=== PATIENT | male | born 1950 | race Caucasian/White ===

== ENCOUNTER 2023-11-21 00:20 | Emergency (ER) | payer MEDICARE, SELFPAY ==
[2023-11-21 00:38] VITALS: BP 160/81
== END 2023-11-21 02:16 | disposition left against medical advice (07) ==
LOC: EMR 00:20
DX: S79.911A Unspecified injury of right hip, initial encounter (principal); W19.XXXA Unspecified fall, initial encounter
CPT/HCPCS: 73502

== ENCOUNTER 2023-11-23 14:35 | Emergency (ER) | payer MEDICARE, SELFPAY ==
[2023-11-23 14:36] VITALS: BP 147/65
--- NOTE | 2023-11-23 15:24 | ED.GENMED ---
History of Present Illness
General
Chief Complaint: Alcohol Problem
Time Seen by Provider: 11/23/23 14:55
Travel History
Have you had any contact with someone who has COVID-19?: No
Do you have any symptoms of coronavirus? Fever > 100 degrees, chills, cough, shortness of breath, sore throat, loss of taste or smell, muscle aches, or headache?: No
History of Present Illness
History of Present Illness:
73 yo male presents to the Emergency Department via EMS for evaluation after being found asleep outside of grocery store. He admits to drinking '3 drinks' today due to chronic knee pain. Also admits to homelessness. Denies any medical complaints.
Past History
Past History
ED Past Medical History: [place], Psychiatric (Depression, Schizophrenia) and Other (Back injury)
ED Past Surgical History: None
Social History
Tobacco: Smoker
Alcohol: None
Personal:
Living: homeless
Phy Exam
Physical Exam
Physical Exam:
GEN: Well appearing, NAD, WDWN
HEENT: Oral mucosa moist, no scleral icterus
Cardiac: Regular rate
Lung: No respiratory distress, no tachypnea
MSK: No gross deformity or injuries
Skin: Good color, no pallor or jaundice, no rashes
Neuro: Somnolent, arouses to voice, easily agitated
Psych: Calm, cooperative
Scores
Withdrawal Assessment of Alcohol
Withdrawal Assessment Completed?: Not applicable
Course
Orders/Labs/Results
Orders:
Orders
11/23/23 15:09
Case Management Consult ONCE
Case Management Consult: Other
Comment: homeless
Vital Signs
Initial and Last Documented VS:
Initial Vital Signs
Temp Pulse Resp BP Pulse Ox
97.9 F 73 16 147/65 97
11/23/23 14:36 11/23/23 14:36 11/23/23 14:36 11/23/23 14:36 11/23/23 14:36
Last Documented Vital Signs
Temp Pulse Resp BP Pulse Ox
97.9 F 61 20 123/57 97
11/23/23 14:36 11/23/23 19:00 11/23/23 19:00 11/23/23 19:00 11/23/23 14:36
MDM/Problems Addressed
MDM/Problems Addressed:
Changed patient was observed in the emergency department until clinical sobriety. He complains of chronic knee pain however this is an ongoing problem for him for many years. He is discharged in stable condition. Case management did attempt to
see the patient however he was too somnolent to cooperate
*Critical Care Note
Total Time (30-74mins, 75-104mins- exclusive of procedures): Not Applicable
ED Attending Note
-
Portions of this chart may have been created with voice recognition software.� Occasional wrong word or��sound alike� substitutions may have occurred due to the inherent limitations of voice recognition software.
Discharge Plan
Departure
Patient Disposition: Home (Routine Discharge)
Date of Disposition: 11/23/23
Time of Disposition: 19:16
Patient with high blood pressure during this ER visit?: No
Discharge Problem:
Homelessness, Alcohol intoxication
Prescriptions:
No Action
No Current Medications
0
Referrals:
UNKNOWN - PT NOT,INTERVIEWE [Family Provider] -
Interventions
Interventions:
*Risk Screen - Suicide Last Done: 11/23/23 14:40
*General Assessment Last Done: 11/23/23 14:39
*Neglect/Abuse Screening Last Done: 11/23/23 14:40
*ED COVID-19 Vaccine History Last Done: 11/23/23 14:39
*Nursing Disposition Last Done: 11/23/23 19:24
ED- Neurological Assessment Last Done: 11/23/23 14:41
ED-Psychological Assessment Last Done: 11/23/23 14:41
Discharge Date and Time
Discharge Date/Time: 11/23/23 19:24
Print Language: ANGUILLAN
[2023-11-23 16:06] VITALS: BP 129/72
--- NOTE | 2023-11-23 16:19 | CM ---
CM consult received for homelessness. Reviewed the chart notes and attempted to speak with the patient, patient lethargic. Patient sleeping soundly and snoring. RN and attending updated. All patient was able to communicate was 'living on
street'. No meaning conversation was able to be ascertained between patient and CM. CM continues to be available to patient/family and is monitoring medical plan for needs at discharge.
Plan: Patient to sleep off his inebriation and be discharged to the street.
[2023-11-23 17:00] VITALS: BP 108/54
[2023-11-23 18:00] VITALS: BP 122/58
[2023-11-23 19:00] VITALS: BP 123/57
== END 2023-11-23 19:24 | disposition home or self-care (01) ==
LOC: EMR 14:35
PROVIDERS: EMERGENCY PHYSICIAN Emergency Medicine
DX: F10.129 Alcohol abuse with intoxication, unspecified (principal); Z59.00 Homelessness unspecified; F20.9 Schizophrenia, unspecified; F17.200 Nicotine dependence, unspecified, uncomplicated; I25.2 Old myocardial infarction
CPT/HCPCS: 99282

== ENCOUNTER 2024-06-30 22:19 | Emergency (ER) | payer MEDICARE, SELFPAY ==
[2024-06-30 22:27] VITALS: BP 127/66
[2024-07-01 01:25] VITALS: BP 148/88
[2024-07-01 02:38] VITALS: BP 162/86
--- NOTE | 2024-07-01 02:50 | ED.GENMED ---
History of Present Illness
General
Chief Complaint: Cough
Source: patient
Time Seen by Provider: 07/01/24 02:42
History of Present Illness
History of Present Illness:
74-year-old male who is currently homeless who states that he has been coughing for the last 2 months and he has been short of breath. He was dropped off at while out by police and they called medics as result of his complaint. Patient is a
smoker. He denies chest pain or pressure, fever, chills, abdominal pain, back pain, neck pain, headache, dizziness, or other complaints.
Past History
Past History
ED Past Medical History: [place], Psychiatric (Depression, Schizophrenia) and Other (Back injury)
ED Past Surgical History: None
Social History
Tobacco: Smoker
Alcohol: None
Drug: None
Personal:
Living: homeless
Phy Exam
Physical Exam
Physical Exam:
GENERAL: Alert , in no apparent distress
EYE: pupils equal and reactive
NECK: Supple, no significant adenopathy.
ENT: o/p clr, mmm.
CARDIAC: Regular rate and rhythm .
LUNGS: Equal breath sounds bilaterally, no acute respiratory distress, speaks in full sentences easily, diffuse wheezing with scattered rhonchi noted
ABDOMEN: Soft, without focal tenderness, no r/g, no cvat
NEUROLOGICAL: Alert and oriented, no focal neuro deficits
SKIN: Warm and dry, skin intact.
MUSCULOSKELETAL: No edema, well perfused.
PSYCH: Normal and appropriate interaction.
Course
Orders/Labs/Results
Orders:
Orders
07/01/24 02:37
CR Chest - 2 Views Urgent
Comment:
Reason For Exam: cough
07/01/24 02:49
Electrocardiogram (*1) Stat
Reason for Study: Other
Other Reason for Exam: pneumonia
07/01/24 02:55
Complete Blood Count/No Diff Urgent
Comprehensive Metabolic Panel Urgent
Troponin I Urgent
Abnormal Lab Results
07/01/24
02:55
RBC 4.37 L 10^6/uL
(4.70-6.10)
MCV 97.0 H fL
(80.0-94.0)
MCH 33.2 H pg
(27.0-31.0)
MPV 10.8 H fL
(7.4-10.4)
Glucose 116 H mg/dl
(70-99)
Total Protein 6.2 L g/dl
(6.3-8.2)
07/01/24 02:55
07/01/24 02:55
Vital Signs
Initial and Last Documented VS:
Initial Vital Signs
Temp Pulse Resp BP Pulse Ox
98.1 F 73 18 127/66 95
06/30/24 22:27 06/30/24 22:27 06/30/24 22:27 06/30/24 22:27 06/30/24 22:27
Last Documented Vital Signs
Temp Pulse Resp BP Pulse Ox
98.1 F 82 14 147/76 95
06/30/24 22:27 07/01/24 01:25 07/01/24 01:25 07/01/24 03:00 07/01/24 02:58
*Critical Care Note
Total Time (30-74mins, 75-104mins- exclusive of procedures): Not Applicable
Update Note
Update Note:
Patient presents to the Emergency Department with cough and shortness of breath
Number and Complexity of Problems Addressed at the Encounter
� Chronic conditions affecting care:
� Acute Exacerbation and/or Progression of Chronic Illness:
� Differential Diagnosis includes: But not limited to bronchitis, pneumonia, COVID, smoker related cough, COPD, etc. etc.
Amount and/or Complexity of Data to be Reviewed and Analyzed
� I performed an independent evaluation of and my interpretation is:
EKG: Read by me normal sinus rhythm no acute ischemia
CT:
Xrays: Read by me no specific infiltrate noted
Laboratory Studies: Generally unremarkable
Other:
� Review of other/old records reveals:
� Clinical information was obtained by an independent historian:
� Prescriptions/Medications Considered but not given:
� Further testing considered but not performed:
Risk of Complications and/or Morbidity or Mortality of Patient Management
� Social determinants of health affecting care:
� Discussion with other providers (PCP, Hospitalists, Consultants, etc):
� Escalation of care including admission/observation vs risk of discharge considered: 3:53 AM patient is a been observed here for some time, no obvious cough, has been sleeping. Is resistant to having swabs performed and is also
resistant to further testing. Recommendation is for treatment for presumed COPD given his smoking history, cough, etc. with steroids, inhaler, and consideration for antibiotic for likely bronchitis. I will write these prescriptions, patient stable
for discharge.
ED Attending Note
-
Portions of this chart may have been created with voice recognition software.� Occasional wrong word or��sound alike� substitutions may have occurred due to the inherent limitations of voice recognition software.
Discharge Plan
Departure
Patient Disposition: Home (Routine Discharge)
Date of Disposition: 07/01/24
Time of Disposition: 03:54
Patient with high blood pressure during this ER visit?: Yes
Condition: Good
Discharge Problem:
Cough
Instructions: Cough, Adult (DC), BLOOD PRESSURE
Prescriptions:
New
albuterol sulfate 90 mcg/actuation aerosol powdr breath activated
2 inh inhalation Q6H PRN (Reason: shortness of breath or wheezing) Qty: 1 0RF
doxycycline hyclate 100 mg capsule
100 mg PO BID Qty: 14 0RF
prednisone 50 mg tablet
50 mg PO DAILY Qty: 5 0RF
Activity Restrictions/Additional Instructions:
IF YOU DEVELOP FEVER, CHEST PAIN, VOMITING, SHORTNESS OF BREATH, GET WORSE, DO NOT GET BETTER, OR OTHER WORRISOME SIGNS, PLEASE RETURN TO THE ER IMMEDIATELY
Interventions
Interventions:
*Risk Screen - Suicide Last Done: 07/01/24 03:00
*General Assessment Last Done: 07/01/24 03:00
*Neglect/Abuse Screening Last Done: 07/01/24 03:00
ED- Fall Risk Assessment Last Done: 07/01/24 02:58
*ED COVID-19 Vaccine History Last Done: 07/01/24 02:58
*Nursing Disposition Last Done: 07/01/24 04:15
ED- Pulmonary Assessment Last Done: 07/01/24 02:58
Discharge Date and Time
Discharge Date/Time: 07/01/24 04:16
Print Language: AMHARIC
[2024-07-01 02:58] VITALS: BMI 29.3
[2024-07-01 03:00] VITALS: BP 147/76
[2024-07-01 03:06] LABS: Hematocrit 42.4 % (39.0-52.0); Hemoglobin 14.5 g/dL (13.0-18.0); Mean Corp Hgb Conc. 34.2 g/dL (33.0-37.0); Mean Corpuscular Hgb 33.2 pg (27.0-31.0); Mean Platelet Volume 10.8 fL (7.4-10.4); Platelet Count 172 10^3/uL (130-400); Red Blood Cell Count 4.37 10^6/uL (4.70-6.10); Red Cell Dist. Width 12.6 % (11.5-14.5); White Blood Cell Count 5.7 10^3/uL (4.8-10.8)
[2024-07-01 03:15] LABS: ALT (SGPT) 16 U/L (0-50); AST (SGOT) 23 U/L (17-59); Albumin 3.8 g/dl (3.5-5.0); Alkaline Phosphatase 54 U/L (38-126); Blood Urea Nitrogen 18 mg/dl (9-20); Calcium 8.9 mg/dl (8.4-10.2); Carbon Dioxide 24 mmol/L (22-30); Chloride 107 mmol/L (98-107); Estimated Creatinine Clearance 92 ml/min; Glucose 116 mg/dl (70-99); Potassium 4.5 mmol/L (3.5-5.1); Sodium 138 mmol/L (135-145); Total Bilirubin 0.3 mg/dl (0.2-1.3); Total Protein 6.2 g/dl (6.3-8.2); eGFR > 60.00
[2024-07-01 03:27] LABS: Troponin I < 0.012 ng/ml
== END 2024-07-01 04:16 | disposition home or self-care (01) ==
LOC: EMR 22:19
PROVIDERS: EMERGENCY PHYSICIAN Emergency Medicine
DX: R05.9 Cough, unspecified (principal); F17.200 Nicotine dependence, unspecified, uncomplicated; Z59.00 Homelessness unspecified; R03.0 Elevated blood-pressure reading, without diagnosis of hypertension
CPT/HCPCS: 99285; 71046; 80053; 84484; 85027; 93005

== ENCOUNTER 2024-08-06 23:26 | Emergency (ER) | payer MEDICARE, SELFPAY ==
[2024-08-06 23:36] VITALS: BP 164/95
--- NOTE | 2024-08-07 02:35 | EDRN ---
$854 counted by Jakub from security. Money locked up with security.
--- NOTE | 2024-08-07 05:09 | ED.GENMED ---
History of Present Illness
General
Chief Complaint: Psychiatric Problem
Source: patient
Exam Limitations: none
Time Seen by Provider: 08/07/24 04:27
Nursing documentation reviewed up to this point in time: agreed with
History of Present Illness
History of Present Illness:
This is a 74-year-old chronically homeless gentleman who has history of anxiety/depression and reported history of schizophrenia.
He called [phone] from a local convenience store that was closing soon. He states his nursing home was closing, there was no on the ground and called and he admits that he needed a place to sleep.
According to nursing staff patient arrived and seemed initially quite disorganized with rambling speech.
He denies suicidal thoughts or plan.
He denies any acute medical issues. Denies pain.
He requests a bed to sleep and and then plans to be discharged in the morning.
According to security staff, patient has over $700 in sharp on his possession.
Patient does admit that he is homeless but declines assistance with housing at this time.
Past History
Past History
ED Past Medical History: [place], Psychiatric (Depression, Schizophrenia) and Other (Back injury)
ED Past Surgical History: None
Social History
Tobacco: Smoker
Alcohol: None
Drug: None
Personal:
Living: homeless
Family History
Family History: Other (Noncontributory)
Phy Exam
Physical Exam
Physical Exam:
GENERAL: 74-year-old gentleman appears somewhat older than stated age. Sleeps when undisturbed, easily arousable and once awake he is bright and alert, easily conversant, appears in no acute distress.
ENT: oral mucosa is moist. No rhinorrhea.
CARDIAC: Regular rate and rhythm. no murmur.
LUNGS: No respiratory distress.
ABDOMEN: Nontender.
NEUROLOGICAL: Alert and oriented x3, no focal neuro deficits. Gait is beauchamp and steady.
SKIN: Warm and dry, normal color, skin intact. No rash.
MUSCULOSKELETAL: No C/C/E. peripheral pulses are full and equal b/l. No palpable tenderness.
PSYCH: Moderately disheveled and unkempt. Denies suicidal thoughts or plan. Denies homicidal thoughts. Denies hallucinations. Easily conversant. Normal speech pattern.
Course
Orders/Labs/Results
Orders:
Orders
08/07/24 04:26
Crisis Consult Urgent
Reason for Consult: HOMELESS, HX OF SCHIZOPHRENIA--AGITATED, DISORGANIZED
Vital Signs
Initial and Last Documented VS:
Initial Vital Signs
Temp Pulse Resp BP Pulse Ox
97.7 F 78 24 164/95 94
08/06/24 23:36 08/06/24 23:36 08/06/24 23:36 08/06/24 23:36 08/06/24 23:36
Last Documented Vital Signs
Temp Pulse Resp BP Pulse Ox
97.7 F 78 24 164/95 94
08/06/24 23:36 08/06/24 23:36 08/06/24 23:36 08/06/24 23:36 08/06/24 23:36
MDM/Problems Addressed
Differential Diagnosis Includes:
74-year-old gentleman with reported past psychiatric history presents requesting a place to sleep due to cold increment weather.
Apparently unable to enter a nursing home tonight.
Currently cooperative. Denies hallucinations, denies racing thoughts. Denies thoughts of suicide.
Will consult crisis to assess for potential psychiatric need, potential need for outpatient services.
Patient has been allowed to sleep in crisis bed 1.
He is somewhat disheveled but appears euvolemic.
Denies acute medical issues.
At this point no indication for laboratory studies nor imaging.
Chronic conditions affecting care: Psychiatric illness and Other (Chronic homelessness)
*Pulse Oximetry
Patient hypoxic: no
*Critical Care Note
Total Time (30-74mins, 75-104mins- exclusive of procedures): Not Applicable
Patient Management
Social determinants of health affecting care: Living situation and Poor outpatient follow-up
ED Attending Note
-
Portions of this chart may have been created with voice recognition software.� Occasional wrong word or��sound alike� substitutions may have occurred due to the inherent limitations of voice recognition software.
Discharge Plan
Departure
Patient Disposition: Home (Routine Discharge)
Date of Disposition: 08/07/24
Time of Disposition: 05:09
Patient with high blood pressure during this ER visit?: No
Condition: Good
Discharge Problem:
Homelessness
Prescriptions:
No Action
albuterol sulfate 90 mcg/actuation aerosol powdr breath activated
2 inh inhalation Q6H PRN (Reason: shortness of breath or wheezing) Qty: 1 0RF
doxycycline hyclate 100 mg capsule
100 mg PO BID Qty: 14 0RF
prednisone 50 mg tablet
50 mg PO DAILY Qty: 5 0RF
Referrals:
UNKNOWN - PT NOT,INTERVIEWE [Family Provider] -
Interventions
Interventions:
*Risk Screen - Suicide Last Done: 08/07/24 00:12
*General Assessment Last Done: 08/07/24 00:12
*Neglect/Abuse Screening Last Done: 08/07/24 00:12
ED- Fall Risk Assessment Last Done: 08/07/24 05:22
*ED COVID-19 Vaccine History Last Done: 08/07/24 00:12
*Nursing Disposition Last Done: 08/07/24 05:23
ED-Psychological Assessment Last Done: 08/07/24 00:12
Discharge Date and Time
Discharge Date/Time: 08/07/24 05:25
Print Language: NICARAGUAN
== END 2024-08-07 05:25 | disposition home or self-care (01) ==
LOC: EMR 23:26
PROVIDERS: EMERGENCY PHYSICIAN Emergency Medicine
DX: F20.9 Schizophrenia, unspecified (principal); Z59.00 Homelessness unspecified; I25.2 Old myocardial infarction; F17.200 Nicotine dependence, unspecified, uncomplicated
CPT/HCPCS: 99283

== ENCOUNTER 2024-08-10 15:17 | Inpatient (IN) | payer MEDICARE, SELFPAY ==
[2024-08-10 12:08] VITALS: BMI 25.0
[2024-08-10 12:09] VITALS: BP 190/85
--- NOTE | 2024-08-10 12:19 | ED.GENMED ---
History of Present Illness
<Delmis Riley PA-C - Last Filed: 08/10/24 17:05>
General
Chief Complaint: Cough
Source: patient and ambulance crew
Exam Limitations: none
Time Seen by Provider: 08/10/24 12:14
History of Present Illness
History of Present Illness:
74yoM with a history of tobacco use presenting via EMS for evaluation of a cough. Cough has been ongoing for a several months but has been worsening the past few weeks. Cough is mainly dry. He is homeless and was at the [facility] today. A passerby
told him that he may have COVID so he decided to come to the ED. He states he has fevers 'here and there.' He denies any chest pain or shortness of breath. Patient smokes 1/2 ppd.
Past History
<Delmis Riley PA-C - Last Filed: 08/10/24 17:05>
Past History
ED Past Medical History: [place], Psychiatric (Depression, Schizophrenia) and Other (Back injury)
ED Past Surgical History: None
Social History
Tobacco: Smoker
Alcohol: None
Drug: None
Personal:
Living: homeless
Family History
Family History: Other (Noncontributory)
Phy Exam
<Delmis Riley PA-C - Last Filed: 08/10/24 17:05>
General Physical Exam
General Presentation: well appearing and no apparent distress
General age: appears stated age
General Skin: warm and dry
General Habitus: elderly
General Mental: alert
ENT Exam
ENT Exam: normocephalic
Cardiovascular Exam
Cardiovascular Exam: regular rate/rhythm
Pulmonary Exam
Pulmonary Exam: no respiratory distress, no rales and other (Frequent dry cough noted. Rhonchi that clear with coughing.)
Neurological Exam
Neurological Exam: alert
Skin Exam
Skin Exam: normal color and warm/dry
Psychiatric Exam
Psychiatric Exam: normal mood/affect
Course
<Delmis Riley PA-C - Last Filed: 08/10/24 17:05>
Orders/Labs/Results
Orders:
Orders
08/10/24 Breakfast
Regular
At Your Request: Full Participation
08/10/24 12:16
Chest [CR Chest - 2 Views ] Urgent
Comment:
Reason For Exam: cough
08/10/24 12:17
COVID-19 Antigen Urgent
Source: Nasal Swab
INF RAPID [Influenza A+B Rapid Molecular] Urgent
GURWINDER Source: Nasal Swab
Specimen Description:
08/10/24 12:20
Case Management Consult ONCE
Case Management Consult: Discharge Planning
08/10/24 13:22
Complete Blood Count/With Diff Urgent
Comprehensive Metabolic Panel Urgent
08/10/24 14:13
Azithromycin [Zithromax] 500 mg PO NOW STA
CefTRIAXone [Rocephin] 2,000 mg IV NOW STA
08/10/24 14:21
Sterile Water [Sterile Water For Injection] 20 ml .ROUTE .STK-MED
08/10/24 14:33
Dexamethasone Sod Phosphate [Decadron] 10 mg IV NOW STA
Ipratropium/Albuterol Sulfate [Duoneb] 3 ml INH R NOW STA
08/10/24 15:05
Admit/Transfer Patient As Directed
Co-Sign Provider:
Level of Care: Inpatient admission
Assign to:: Medical/Surgical
Physician / Group: jaqueline
Diagnosis: pneumonia
Reason for Hospitalization: pneumonia
Expected length of stay greater than two midnights?: Yes
ELOS- Estimated Length of Stay in days: 3
I certify the patient meets the requirements for IP care: Yes
PRN Pain Medication Management As Directed
May give lesser potent ordered pain med per pt: Yes
preference::
Protocol:: Medication orders for pain may be administered in a
manner that supports deferring to patient preference
when the pt is:
- Requesting an ordered lesser potent pain medication.
Least to most potent pain medications are defined
as: acetaminophen < NSAID < tramadol < opioids
(morphine, oxycodone, hydromorphone).
- Requesting a lesser dose of the same medication IF
ORDERED.
- Requesting a less intrusive route of administration
if both routes are prescribed by the provider (PO <
IV).
08/10/24 15:06
Code Status As Directed
Resuscitation Status: Full Code
Abnormal Lab Results
08/10/24
13:22
RBC 4.39 L 10^6/uL
(4.70-6.10)
MCV 95.2 H fL
(80.0-94.0)
MCH 32.6 H pg
(27.0-31.0)
Absolute Lymphs (auto) 0.5 L 10^3/uL
(1.2-3.4)
Absolute Monos (auto) 0.8 H 10^3/uL
(0.1-0.6)
Neutrophils % 76.2 H %
(42.2-75.2)
Lymphocytes % 8.4 L %
(20.5-51.1)
Monocytes % 13.3 H %
(1.7-9.3)
Sodium 134 L mmol/L
(135-145)
BUN 22 H mg/dl
(9-20)
Creatinine 0.6 L mg/dL
(0.7-1.3)
Glucose 100 H mg/dl
(70-99)
08/10/24 13:22
08/10/24 13:22
Vital Signs
Initial and Last Documented VS:
Initial Vital Signs
Temp Pulse Resp BP Pulse Ox
99.3 F 80 25 190/85 95
08/10/24 12:09 08/10/24 12:09 08/10/24 12:09 08/10/24 12:09 08/10/24 12:09
Last Documented Vital Signs
Temp Pulse Resp BP Pulse Ox
99.3 F 80 22 157/76 94
08/10/24 12:09 08/10/24 15:46 08/10/24 15:46 08/10/24 15:46 08/10/24 15:46
<Clifton Jerome, DO - Last Filed: 08/10/24 14:45>
Orders/Labs/Results
Orders:
Orders
08/10/24 Breakfast
Regular
At Your Request: Full Participation
08/10/24 12:16
Chest [CR Chest - 2 Views ] Urgent
Comment:
Reason For Exam: cough
08/10/24 12:17
COVID-19 Antigen Urgent
Source: Nasal Swab
INF RAPID [Influenza A+B Rapid Molecular] Urgent
GURWINDER Source: Nasal Swab
Specimen Description:
08/10/24 12:20
Case Management Consult ONCE
Case Management Consult: Discharge Planning
08/10/24 13:22
Complete Blood Count/With Diff Urgent
Comprehensive Metabolic Panel Urgent
08/10/24 14:13
Azithromycin [Zithromax] 500 mg PO NOW STA
CefTRIAXone [Rocephin] 2,000 mg IV NOW STA
08/10/24 14:21
Sterile Water [Sterile Water For Injection] 20 ml .ROUTE .STK-MED
08/10/24 14:33
Dexamethasone Sod Phosphate [Decadron] 10 mg IV NOW STA
Ipratropium/Albuterol Sulfate [Duoneb] 3 ml INH R NOW STA
08/10/24 15:05
Admit/Transfer Patient As Directed
Co-Sign Provider:
Level of Care: Inpatient admission
Assign to:: Medical/Surgical
Physician / Group: jaqueline
Diagnosis: pneumonia
Reason for Hospitalization: pneumonia
Expected length of stay greater than two midnights?: Yes
ELOS- Estimated Length of Stay in days: 3
I certify the patient meets the requirements for IP care: Yes
PRN Pain Medication Management As Directed
May give lesser potent ordered pain med per pt: Yes
preference::
Protocol:: Medication orders for pain may be administered in a
manner that supports deferring to patient preference
when the pt is:
- Requesting an ordered lesser potent pain medication.
Least to most potent pain medications are defined
as: acetaminophen < NSAID < tramadol < opioids
(morphine, oxycodone, hydromorphone).
- Requesting a lesser dose of the same medication IF
ORDERED.
- Requesting a less intrusive route of administration
if both routes are prescribed by the provider (PO <
IV).
08/10/24 15:06
Code Status As Directed
Resuscitation Status: Full Code
Abnormal Lab Results
08/10/24
13:22
RBC 4.39 L 10^6/uL
(4.70-6.10)
MCV 95.2 H fL
(80.0-94.0)
MCH 32.6 H pg
(27.0-31.0)
Absolute Lymphs (auto) 0.5 L 10^3/uL
(1.2-3.4)
Absolute Monos (auto) 0.8 H 10^3/uL
(0.1-0.6)
Neutrophils % 76.2 H %
(42.2-75.2)
Lymphocytes % 8.4 L %
(20.5-51.1)
Monocytes % 13.3 H %
(1.7-9.3)
Sodium 134 L mmol/L
(135-145)
BUN 22 H mg/dl
(9-20)
Creatinine 0.6 L mg/dL
(0.7-1.3)
Glucose 100 H mg/dl
(70-99)
08/10/24 13:22
08/10/24 13:22
Vital Signs
Initial and Last Documented VS:
Initial Vital Signs
Temp Pulse Resp BP Pulse Ox
99.3 F 80 25 190/85 95
08/10/24 12:09 08/10/24 12:09 08/10/24 12:09 08/10/24 12:09 08/10/24 12:09
Last Documented Vital Signs
Temp Pulse Resp BP Pulse Ox
99.3 F 80 22 157/76 94
08/10/24 12:09 08/10/24 15:46 08/10/24 15:46 08/10/24 15:46 08/10/24 15:46
<Delmis Riley PA-C - Last Filed: 08/10/24 17:05>
MDM/Problems Addressed
Differential Diagnosis Includes:
74yoM here with a cough. Ongoing x several months, worsening x several weeks. He is hypertensive with otherwise normal vitals. He has a frequent cough during exam. Rhonchi noted on lung exam that clear with coughing. Differential diagnosis includes
but is not limited to: viral illness, bronchitis, pneumonia, COPD exacerbation
Initial ED plan: Check COVID/flu swab and CXR.
<Delmis Riley PA-C - Last Filed: 08/10/24 17:05>
*Critical Care Note
Total Time (30-74mins, 75-104mins- exclusive of procedures): Not Applicable
<Delmis Riley PA-C - Last Filed: 08/10/24 17:05>
Update Note
Update Note:
Patient is positive for influenza A. CXR shows patchy opacity at the L lung base which was also present on CXR from June 2024. Opacity may be pneumonia vs. mass. CT initially ordered but patient refused this. No safe discharge plan as patient is
homeless. IV Decadron and DuoNeb ordered given wheezing. Will also cover with IV Rocephin and azithromycin. Patient admitted for further management.
ED Attending Note
<Delmis Riley PA-C - Last Filed: 08/10/24 17:05>
-
Portions of this chart may have been created with voice recognition software.� Occasional wrong word or��sound alike� substitutions may have occurred due to the inherent limitations of voice recognition software.
<Clifton Jerome DO - Last Filed: 08/10/24 14:45>
ED Attending Note
Patient seen and examined by attending physician: Yes
I performed the substantive portion of visit, reviewed & personally made and approve the management plan that is documented in note by myself or ANDREW.: Yes
ED Attending Note:
Seen with PA examined independently mentally ill homeless male cough here influenza positive looks like pneumonia
Crackles with rhonchi on exam, plan will be nebs steroids antibiotics low threshold to admit due to poor social status, is 35 degrees freezing range right now I do not feel comfortable sending him out to the street, case management has been consulted
Discharge Plan
Departure
Patient Disposition: Admit
Date of Disposition: 08/10/24
Time of Disposition: 14:39
Presentation/result/management discussed w/ accepting MD/DO: Hospitalist
Discharge Problem:
Influenza A, Asthma exacerbation in COPD, Abnormal chest x-ray
Interventions
Interventions:
*Risk Screen - Suicide Last Done: 08/10/24 12:09
*General Assessment Last Done: 08/10/24 12:09
*Neglect/Abuse Screening Last Done: 08/10/24 12:09
ED- Fall Risk Assessment Last Done: 08/10/24 12:26
*ED COVID-19 Vaccine History Last Done: 08/10/24 12:09
ED- Pulmonary Assessment Last Done: 08/10/24 12:26
[2024-08-10 12:47] LABS: COVID-19 Antigen Negative (Negative)
[2024-08-10 13:32] LABS: % Basophils 0.6 % (0-2); % Immature Granulocytes 0.5 % (0-0.5); % Lymphocytes 8.4 % (20.5-51.1); % Monocytes 13.3 % (1.7-9.3); % Neutrophils 76.2 % (42.2-75.2); Absolute Eosinophils 0.1 10^3/uL (0-0.7); Absolute Lymphocytes 0.5 10^3/uL (1.2-3.4); Absolute Monocytes 0.8 10^3/uL (0.1-0.6); Absolute Neutrophils 4.8 10^3/uL (1.4-6.5); Hematocrit 41.8 % (39.0-52.0); Hemoglobin 14.3 g/dL (13.0-18.0); Mean Corp Hgb Conc. 34.2 g/dL (33.0-37.0); Mean Corpuscular Hgb 32.6 pg (27.0-31.0); Mean Corpuscular Volume 95.2 fL (80.0-94.0); Mean Platelet Volume 10.2 fL (7.4-10.4); Nucleated Red Blood Cells % 0 % (-); Platelet Count 159 10^3/uL (130-400); Red Blood Cell Count 4.39 10^6/uL (4.70-6.10); Red Cell Dist. Width 12.8 % (11.5-14.5); White Blood Cell Count 6.3 10^3/uL (4.8-10.8)
[2024-08-10 13:50] LABS: ALT (SGPT) 19 U/L (0-50); AST (SGOT) 27 U/L (17-59); Albumin 3.8 g/dl (3.5-5.0); Alkaline Phosphatase 72 U/L (38-126); Blood Urea Nitrogen 22 mg/dl (9-20); Calcium 8.6 mg/dl (8.4-10.2); Carbon Dioxide 22 mmol/L (22-30); Chloride 105 mmol/L (98-107); Estimated Creatinine Clearance > 125 ml/min; Glucose 100 mg/dl (70-99); Potassium 4.3 mmol/L (3.5-5.1); Sodium 134 mmol/L (135-145); Total Bilirubin 0.5 mg/dl (0.2-1.3); Total Protein 6.7 g/dl (6.3-8.2); eGFR > 60.00
[2024-08-10] MEDS: ZITHROMAX 500 MG PO (14:29)
[2024-08-10] MEDS: ROCEPHIN 2000 MG IV (14:29)
--- NOTE | 2024-08-10 14:42 | HPS.HSE ---
Family Physician
-
Family Physician: * NONE
Chief Complaint
-
cough
sob
History of Present Illness
74yoM with a history of depression, schizophrenia,tobacco use presenting via EMS for evaluation of a cough.patient stated worsening of cough for past few days. he also complained of sob which is worsening for past few days. patient stated sob with
exertion. sometimes his cough is productive with yellow phlegm. he is also complaining of mid sternum chest pain. denied CAZARES, dizzy. denied fever ,chills. denied abdominal pain,n,v,d. denied dysuria or hematuria.
tested positive for Influenza A. chest x ray with possible pneumonia vs mass. patient received a dose of Zithromax, ceftriaxone, Decadron and nebs in ER. Admitting for the management.
Medical History
Past Medical History
Past Medical History: Reports Other
Additional Past Medical History:
Depression, schizophrenia
Past Surgical History: Reports None
Social History
Tobacco: Smoker (Half pack daily)
Alcohol: None
Drug: None
Personal: Single
Living: Homeless
Family History
Family History: Not pertinent
Allergies / Home Medications
Allergies reflects when Allergies were last updated in [employer].
Home Medications with original date entered in [employer]
Allergy/Medication List:
Allergies
Allergy/AdvReac Type Severity Reaction Status Date / Time
No Known Allergies Allergy Verified 10/26/20 19:46
Home Medications
albuterol sulfate 90 mcg/actuation breath activated powder inhaler 2 inh inhalation Q6H PRN shortness of breath or wheezing #1 ea 07/01/24
doxycycline hyclate 100 mg capsule 100 mg PO BID #14 caps 07/01/24
prednisone 50 mg tablet 50 mg PO DAILY #5 tabs 07/01/24
Review of Systems
-
Constitutional: Reports No Symptoms
EENT: Reports No Symptoms
Respiratory: Reports Cough and Trouble Breathing
Cardiac: Reports Chest Pain
Abdomen/GI: Reports No Symptoms
: Reports No Symptoms
Musculoskeletal: Reports No Symptoms
Skin: Reports No Symptoms
Neurological: Reports No Symptoms
Endocrine: Reports No Symptoms
Hematologic/Lymphatic: Reports No Symptoms
Psych: Reports No Symptoms
Physical Exam
Vital Signs
Vital Signs
Temp Pulse Resp BP Pulse Ox
99.3 F 92 22 190/85 94
08/10/24 12:09 08/10/24 14:00 08/10/24 14:00 08/10/24 12:09 08/10/24 14:00
Physical Exam
General: Well Developed, Well Nourished and No Apparent Distress
HEENT: NormoCephalic, Moist mucous membranes and Atraumatic
Respiratory: Wheezes
Cardiac: S1/S2 and Regular Rhythm; No Murmur or Rub
GI: Soft, Non Tender, Non Distended and Normal Bowel Sounds; No Organomegaly
Rectal: Deferred by Provider
Musculoskeletal: No Clubbing, No Cyanosis and No Edema
Skin: No Rash
Neuro: AO x 3 and Nonfocal/grossly intact
Psych: Calm
Laboratory Results
-
08/10/24 13:22
08/10/24 13:22
Laboratory Results
Total Bilirubin 0.5 mg/dl (0.2-1.3) 08/10/24 13:22
AST 27 U/L (17-59) 08/10/24 13:22
ALT 19 U/L (0-50) 08/10/24 13:22
Alkaline Phosphatase 72 U/L (38-126) 08/10/24 13:22
Data Reviewed
-
Diagnostic Radiology: Report Reviewed by me
Lab Data: Labs Reviewed by me
Impression/Plan
-
# Cough likely from influenza/pneumonia/COPD exacerbation
#acute bronchitis
-Chest x-ray with impression of Patchy opacity again noted in the left lung base. While this may represent pneumonia, it has not improved compared to the chest radiograph from 06/23/2024. Considerations include persistent pneumonia or pulmonary
mass.No pleural effusion or pneumothorax. The cardiomediastinal silhouette is stable. Chronic degenerative changes of the spine.
-Continue ceftriaxone and azithromycin
-Obtain sputum culture, urine Legionella and strep pneumonia
-DuoNebs as needed for shortness breath and wheezing
-Decadron continued
-COVID-negative
#Hypertension
-Hydralazine as needed for hypertension
#Nicotine dependence
-Smokes half a pack a day
-Nicotine patch
-Encourage smoking cessation
#DVT prophylaxis
- Lovenox
#CODE STATUS
-Full code
[2024-08-10] MEDS: DECADRON 10 MG IV (14:51)
[2024-08-10] MEDS: DUONEB 3 ML INH ×3 (15:06→23:20)
--- NOTE | 2024-08-10 15:14 | CM ---
Patient is homeless; CM attempted to find halfway; contacted [facility] # [phone]
Just received a text from ED-PA; she reported that patient is going to be admitted
[2024-08-10 15:17] VITALS: BMI 27.1
--- NOTE | 2024-08-10 15:28 | W.PN.UPDATE ---
Update Note
Progress Note Update
This is an addendum to the H&P written by Christen Graf on 08/10/2024.� Patient seen and examined independently with [facility].
74-year-old homeless male past medical history of smoking, schizophrenia, likely hypertension, presenting with productive cough worsening over the past few weeks but chronic for months and shortness of breath and midsternal chest pain.� A passerby
told him he may have COVID so he came to the ER.
Chest x-ray shows patchy opacity in the left lung base which is not improved from prior x-ray on 07/01.� He was seen on 07/01 in ER for ongoing cough.� He was prescribed prednisone, doxycycline and DuoNeb.
COVID is negative.� Influenza A positive.
EKG shows sinus rhythm with sinus arrhythmia.
Bilateral rhonchi on examination.
Patient given azithromycin/ceftriaxone, dexamethasone, DuoNeb.
Patient with acute bronchitis secondary to influenza infection.� Continue DuoNebs and dexamethasone.� Check sputum culture.� Will continue antibiotics with ceftriaxone/azithromycin is unclear whether patient completed antibiotic course that was
prescribed in the ER in 07/01 for left midlung pneumonia.
As needed hydralazine for hypertension.
[2024-08-10 15:44] VITALS: BP 157/76
[2024-08-10 15:46] VITALS: BP 157/76
[2024-08-10 16:00] VITALS: BP 159/81
[2024-08-10] MEDS: DUONEB INH (18:24)
[2024-08-10] MEDS: LOVENOX 40 MG SC (23:15)
[2024-08-10] MEDS: DECADRON 4 MG IV (23:17)
[2024-08-10] MEDS: MUCINEX 1200 MG PO (23:18)
[2024-08-10] MEDS: NICODERM TRANSDERMAL 21 MG TRANSDERM (23:19)
[2024-08-10 23:23] VITALS: BP 163/78
[2024-08-11] MEDS: DECADRON 4 MG IV (05:11)
--- NOTE | 2024-08-11 06:24 | PTCARENOTE ---
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
--- NOTE | 2024-08-11 07:37 | W.PN.HOSP.TC ---
Today's Communication/Plan
-
check procal
inhalers
Assessment / Plan
Assessment / Plan
74yo homeless, smoker, PMHx of schyzophrenia, CAD came with few weeks of cough, found Influenza A and LLL pneumonia, also seen 1 month ago. Patient not hypoxic on admission but with severe cough
A/P:
#Influenza A
unclear timing for onset
supportive care with antitussives, mucolytics and Tylenol
#LLL opacity
persistent since Jun 2024
CT chest declined by patient even when offered sedation and after detailed explanation of reasoning for the test
COnt Abx pending procalcitonin
#Nicotine dependency
Nicoderm
Stop IV steroids
STart ICS/LABA
#Schyzophrenia
not on meds
#Homeless
CM consult
DVT ppx lovenox
FUll code
I have spent at least 58min reviewing chart, test results and direct patient care
Anticipated Discharge: Within 24 hours
Subjective/Interval History
-
Date of Service: August 11, 2024
Objective Data
-
Vital Signs:
Vital Signs
Temp Pulse Resp BP Pulse Ox
99.3 F 96 20 163/78 95
08/10/24 12:09 08/10/24 19:46 08/10/24 19:46 08/10/24 23:23 08/10/24 23:30
I&O
08/10/24 08/11/24 08/12/24
06:59 06:59 06:59
Intake Total 240 / 240
Balance 240 / 240
Review of Systems
-
History Source: Patient
All other systems: Reviewed and negative
Physical Exam
-
General: No Apparent Distress
HEENT: Normocephalic
Respiratory: Rales
Cardiac: Regular Rhythm
GI: Soft, Nontender and Nondistended
Genito-urinary: No Costovertebral Tender
Musculoskeletal: No Clubbing, No Cyanosis and No Edema
Neuro: Awake, Alert, Oriented and AO x 3
Psych: Calm
[2024-08-11] MEDS: DUONEB 3 ML INH ×4 (07:52→19:21)
[2024-08-11] MEDS: SYMBICORT 160/4.5 MCG INHALER 2 PUFF INH (07:53)
[2024-08-11] MEDS: MUCINEX 1200 MG PO ×2 (07:54→20:06)
[2024-08-11] MEDS: ROBITUSSIN DM 10 ML PO ×3 (07:54→17:43)
[2024-08-11 08:14] LABS: Procalcitonin < 0.05 ng/ml (0.0-0.25)
[2024-08-11 08:19] VITALS: BP 155/81
[2024-08-11] MEDS: NICODERM TRANSDERMAL 21 MG TRANSDERM (08:32)
--- NOTE | 2024-08-11 11:19 | CM ---
CM reviewed medical records. Patient remains acutely ill at this time.
[2024-08-11] MEDS: ZITHROMAX 500 MG PO (13:20)
[2024-08-11] MEDS: ROCEPHIN 1000 MG IV (13:21)
[2024-08-11] MEDS: STERILE WATER FOR INJECTION 10 ML IV (13:22)
[2024-08-11 15:25] VITALS: BP 157/74
[2024-08-11] MEDS: LOVENOX 40 MG SC (17:43)
--- NOTE | 2024-08-11 18:15 | PTCARENOTE ---
Received patient from ED. Patient refused to change into gown, refused for lower half of body to be assessed, and noncompliant with staying in room. Pt is flu+ and often stands in doorway. AAOx3 able to make needs known, argumentative at times.
Oriented to room and use of call yu.
[2024-08-11] MEDS: SYMBICORT 160/4.5 MCG INHALER INH ×2 (19:22→19:29)
--- NOTE | 2024-08-11 20:13 | PTCARENOTE ---
o2 sat at 87% on room air, pt refusing o2 for this RN and respiratory. Pt also refusing to take off clothing for full skin assessment, see previous RN's note.
[2024-08-11] MEDS: TYLENOL 650 MG PO (21:55)
[2024-08-11 23:15] VITALS: BP 158/89
[2024-08-12 03:06] VITALS: BP 144/80
[2024-08-12] MEDS: ROBITUSSIN DM 10 ML PO ×3 (06:14→18:09)
[2024-08-12 07:25] VITALS: BP 156/87
[2024-08-12] MEDS: DUONEB 3 ML INH ×3 (07:49→20:20)
[2024-08-12] MEDS: SYMBICORT 160/4.5 MCG INHALER 2 PUFF INH ×2 (07:50→20:19)
[2024-08-12] MEDS: NICODERM TRANSDERMAL 21 MG TRANSDERM (09:14)
[2024-08-12] MEDS: MUCINEX 1200 MG PO ×2 (09:14→21:06)
--- NOTE | 2024-08-12 11:29 | W.PN.HOSP.TC ---
Today's Communication/Plan
-
dc
Assessment / Plan
Assessment / Plan
74yo homeless, smoker, PMHx of schyzophrenia, CAD came with few weeks of cough, found Influenza A and LLL pneumonia, also seen 1 month ago. Patient not hypoxic on admission but with severe cough. Procalcitonin neg - no convern for bacterial
component. Not hypoxic. Medically stable for d/c
A/P:
#Influenza A
unclear timing for onset
supportive care with antitussives, mucolytics and Tylenol
#LLL opacity
persistent since Jun [address] chest declined by patient even when offered sedation and after detailed explanation of reasoning for the test
procalcitonin wnl
#Nicotine dependency
NicoDerm
Stop IV steroids
STart ICS/LABA
#Schizophrenia
not on meds
#Homeless
CM consult
DVT ppx lovenox
FUll code
I have spent at least 38min reviewing chart, test results and direct patient care
Anticipated Discharge: Today
Subjective/Interval History
-
Date of Service: August 12, 2024
Objective Data
-
Vital Signs:
Vital Signs
Temp Pulse Resp BP Pulse Ox
98.8 F 82 22 156/87 92
08/12/24 07:25 08/12/24 07:55 08/12/24 07:55 08/12/24 07:25 08/12/24 07:55
I&O
08/11/24 08/12/24 08/13/24
06:59 06:59 06:59
Intake Total 240 / 240 1510 / 1510
Balance 240 / 240 1510 / 1510
Review of Systems
-
History Source: Patient
All other systems: Reviewed and negative
Physical Exam
-
General: No Apparent Distress
HEENT: Normocephalic
Respiratory: Clear to Auscultation
Cardiac: Regular Rhythm
Psych: Calm
--- NOTE | 2024-08-12 11:32 | W.DCSUMMARY ---
Discharge Summary
Discharge Data
Date of Admission: 08/10/24
Date of Discharge: 08/12/24
-
Pending Results: No
Hospital Course
74yo homeless, smoker, PMHx of schyzophrenia, CAD came with few weeks of cough, found Influenza A and LLL pneumonia, also seen 1 month ago. Patient not hypoxic on admission but with severe cough. Procalcitonin neg - no convern for bacterial
component. Not hypoxic. CT chest declined by patient even when offered sedation and after detailed explanation of reasoning for the test. Medically stable for d/c
I have spent at least 58min reviewing chart, test results and direct patient care
Patient was managed dofr:
#Influenza A
#LLL opacity
#Nicotine dependency
#Schyzophrenia
#Homeless
Discharge Plan
-
Patient Disposition: Home (Routine Discharge)
Discharge Diagnosis/Procedures: Influenza A
Diet: Regular
Referrals:
NONE,* [Family Provider] -
Prescriptions:
New
dextromethorphan-guaifenesin 10-100 mg/5 mL Syrup
10 ml PO Q4HPRN PRN (Reason: cough) Qty: 125 0RF
Discharge Orders:
Discharge Patient (As Directed); Ordered 08/12/24
Ordered By: Joesph Gutierrez
Discharge Date and Time
Print Language: MACEDONIAN
--- NOTE | 2024-08-12 12:38 | CM ---
Addendum entered by Merary Meier RN 08/12/24 13:34:
CM spoke with [employer] volunteer who stated that due to behavior concerns, [facility] is unable to assist patient with housing. CM will send referral to [facility].
Original Note:
CM left message for [facility] to request housing assistance.
[2024-08-12] MEDS: STERILE WATER FOR INJECTION 10 ML IV (14:03)
[2024-08-12] MEDS: ZITHROMAX 500 MG PO (14:03)
[2024-08-12] MEDS: ROCEPHIN 1000 MG IV (14:03)
[2024-08-12 15:24] VITALS: BP 157/81
[2024-08-12] MEDS: DUONEB INH (15:36)
[2024-08-12] MEDS: TYLENOL 650 MG PO (18:07)
[2024-08-12] MEDS: LOVENOX 40 MG SC (18:09)
[2024-08-12 23:14] VITALS: BP 144/72
[2024-08-13 07:32] VITALS: BP 144/99
--- NOTE | 2024-08-13 07:59 | CM ---
dc was held 08/12 due to fevers within 24hr and pts need for [facility] resources.
Pt has been >24hr fever free. Pt is ineligible for [facility] resources, CM provided [facility] [employer] [facility] and pt can dc today.
[2024-08-13] MEDS: DUONEB 3 ML INH (08:18)
[2024-08-13] MEDS: SYMBICORT 160/4.5 MCG INHALER 2 PUFF INH (08:18)
[2024-08-13] MEDS: NICODERM TRANSDERMAL 21 MG TRANSDERM (09:08)
[2024-08-13] MEDS: MUCINEX 1200 MG PO (09:08)
[2024-08-13] MEDS: ROBITUSSIN DM 10 ML PO (09:12)
--- NOTE | 2024-08-13 09:32 | W.PN.HOSP.TC ---
Today's Communication/Plan
-
cough improving. remains medically stable for d/c
Assessment / Plan
Assessment / Plan
74yo homeless, smoker, PMHx of schyzophrenia, CAD came with few weeks of cough, found Influenza A and LLL pneumonia, also seen 1 month ago. Patient not hypoxic on admission but with severe cough. Procalcitonin neg - no convern for bacterial
component. Not hypoxic. Medically stable for d/c
A/P:
#Influenza A
unclear timing for onset - not a candidate for Tamiflu
supportive care with antitussives, mucolytics and Tylenol
#LLL opacity
persistent since Jun [address] chest declined by patient even when offered sedation and after detailed explanation of reasoning for the test
procalcitonin wnl
#Nicotine dependency
NicoDerm
Stop IV steroids
STart ICS/LABA
#Schizophrenia
not on meds
#Homeless
CM consult
DVT ppx lovenox
FUll code
I have spent at least 38min reviewing chart, test results and direct patient care
Anticipated Discharge: Today
Subjective/Interval History
-
Date of Service: August 13, 2024
Objective Data
-
Vital Signs:
Vital Signs
Temp Pulse Resp BP Pulse Ox
98.3 F 75 16 144/99 90
08/13/24 07:32 08/13/24 08:20 08/13/24 08:20 08/13/24 07:32 08/13/24 08:20
I&O
08/12/24 08/13/24 08/14/24
06:59 06:59 06:59
Intake Total 1510 / 1510 1240 / 1240
Balance 1510 / 1510 1240 / 1240
Review of Systems
-
History Source: Patient
All other systems: Reviewed and negative
Physical Exam
-
General: No Apparent Distress
Neuro: Awake, Alert, Oriented and AO x 3
Psych: Calm
[2024-08-13 11:39] VITALS: BP 154/89
[2024-08-13] MEDS: DUONEB INH ×2 (11:46→15:47)
[2024-08-13 12:30] VITALS: BP 154/89
== END 2024-08-13 16:16 | disposition home or self-care (01) | DRG 202 ==
LOC: 2 NORTH 15:17
PROVIDERS: Physician Assistant; ADMITTING PHYSICIAN Hospitalist; ATTENDING PHYSICIAN Internal Medicine; EMERGENCY PHYSICIAN Emergency Medicine
DX: J20.1 Acute bronchitis due to Hemophilus influenzae (principal); J10.08 Influenza due to other identified influenza virus with other specified pneumonia; J18.9 Pneumonia, unspecified organism; Z59.00 Homelessness unspecified; J44.0 Chronic obstructive pulmonary disease with (acute) lower respiratory infection; J44.1 Chronic obstructive pulmonary disease with (acute) exacerbation; F17.210 Nicotine dependence, cigarettes, uncomplicated; Z11.52 Encounter for screening for COVID-19; I10 Essential (primary) hypertension; F20.9 Schizophrenia, unspecified
CPT/HCPCS: 71046; 80053; 84145; 85025; 87449; 87502; 87811; 87899; 94640; 96374; 96375; 99285; 99406

== ENCOUNTER 2024-08-19 19:25 | Emergency (ER) | payer MEDICARE, SELFPAY ==
[2024-08-19 19:33] VITALS: BP 170/102
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
[2024-08-20 02:48] VITALS: BP 168/98
== END 2024-08-20 02:52 | disposition home or self-care (01) ==
LOC: EMR 19:25
PROVIDERS: EMERGENCY PHYSICIAN Student in an Organized Health Care Education/Training Program
DX: R06.09 Other forms of dyspnea (principal); G89.29 Other chronic pain; M25.562 Pain in left knee; M25.561 Pain in right knee; F20.9 Schizophrenia, unspecified; F41.9 Anxiety disorder, unspecified; F32.A Depression, unspecified; F17.210 Nicotine dependence, cigarettes, uncomplicated; Z59.01 Sheltered homelessness
CPT/HCPCS: 99284; 71046; 73560; 93005

== ENCOUNTER 2024-08-21 10:18 | Emergency (ER) | payer MEDICARE, SELFPAY ==
[2024-08-21 11:07] VITALS: BMI 27.4
--- NOTE | 2024-08-21 11:11 | EDRN ---
Pt is lying on stretcher and states he is here for difficulty breathing and walking.
--- NOTE | 2024-08-21 11:21 | EDRN ---
Dr. Gao in room w/ pt at this time.
--- NOTE | 2024-08-21 11:29 | ED.GENMED ---
History of Present Illness
General
Chief Complaint: Breathing Problem
Source: patient
Time Seen by Provider: 08/21/24 11:14
History of Present Illness
History of Present Illness:
This patient is a 74-year-old male presents emergency department with complaints of shortness of breath for the past few weeks. Of note, patient was here yesterday in the middle the night with similar complaints, had a workup including chest x-ray
knee x-rays EKG etc. all of which were unremarkable. At that time he refused blood work. Patient denies new symptoms. He denies chest pain or pressure, back pain, neck pain, headache, dizziness, fever, chills, nausea, vomiting, abdominal pain,
leg swelling, jaw pain. Patient states that he has chronic hip discomfort secondary to a hip fracture which she then reinjured about a month ago. He was complaining of knee pain yesterday but no longer today.
Past History
Past History
ED Past Medical History: [place], Psychiatric (Depression, Schizophrenia) and Other (Back injury)
ED Past Surgical History: Orthopedic
Social History
Tobacco: Smoker
Alcohol: None
Drug: None
Personal:
Living: homeless
Family History
Family History: Other (Noncontributory)
Phy Exam
Physical Exam
Physical Exam:
GENERAL: Alert , in no apparent distress
EYE: pupils equal and reactive
NECK: Supple, no significant adenopathy.
ENT: o/p clr, mmm.
CARDIAC: Regular rate and rhythm .
LUNGS: Equal breath sounds bilaterally, no acute respiratory distress, scattered wheezing noted, no rales or rhonchi
ABDOMEN: Soft, without focal tenderness, no r/g
NEUROLOGICAL: Alert and oriented, no focal neuro deficits
SKIN: Warm and dry, skin intact.
MUSCULOSKELETAL: No edema, well perfused.
PSYCH: Normal and appropriate interaction.
Course
Orders/Labs/Results
Orders:
Orders
08/21/24 11:28
Ipratropium/Albuterol Sulfate [Duoneb] 3 ml INH R NOW STA
08/21/24 11:33
Electrocardiogram (*1) Urgent
Reason for Study: Shortness of Breath
Case Management Consult ONCE
Case Management Consult: Discharge Planning
EKG- Treatment ONCE
08/21/24 11:42
COVID-19 Antigen Urgent
Source: Nasal Swab
Influenza A+B Rapid Molecular Urgent
GURWINDER Source: Nasal Swab
Specimen Description:
Vital Signs
Initial and Last Documented VS:
Initial Vital Signs
Temp Pulse Resp Pulse Ox
98.7 F 73 24 97
08/21/24 10:21 08/21/24 10:21 08/21/24 10:21 08/21/24 10:21
Last Documented Vital Signs
Temp Pulse Resp BP Pulse Ox
98.7 F 75 18 130/76 94
08/21/24 10:21 08/21/24 12:38 08/21/24 12:38 08/21/24 12:45 08/21/24 12:38
Update Note
Update Note:
Patient presents to the Emergency Department with ____dyspnea
Number and Complexity of Problems Addressed at the Encounter
� Chronic conditions affecting care:
� Acute Exacerbation and/or Progression of Chronic Illness:
� Differential Diagnosis includes: But not limited to pneumonia, COVID, influenza, heart failure, etc. etc. etc.
Amount and/or Complexity of Data to be Reviewed and Analyzed
� I performed an independent evaluation of and my interpretation is:
EKG: Read by me, normal sinus rhythm, normal rate, normal axis, no acute ischemia
CT:
Xrays:
Laboratory Studies: COVID and flu negative
Other:
� Review of other/old records reveals: Patient was admitted earlier this month with a pneumonia. Labs from 08/10 reviewed generally unremarkable
� Clinical information was obtained by an independent historian:
� Prescriptions/Medications Considered but not given:
� Further testing considered but not performed:
Risk of Complications and/or Morbidity or Mortality of Patient Management
� Social determinants of health affecting care:
� Discussion with other providers (PCP, Hospitalists, Consultants, etc):
� Escalation of care including admission/observation vs risk of discharge considered: Concern regarding patient's ongoing complaints, no specific acute etiology noted at this time, prior recent workup noted. Patient is
comfortable, normal pulse ox, no respiratory distress, no chest pain, etc. etc. Case management consulted. They will work with patient regarding disposition planning.
ED Attending Note
-
Portions of this chart may have been created with voice recognition software.� Occasional wrong word or��sound alike� substitutions may have occurred due to the inherent limitations of voice recognition software.
Discharge Plan
Departure
Patient Disposition: Home (Routine Discharge)
Date of Disposition: 08/21/24
Time of Disposition: 12:54
Patient with high blood pressure during this ER visit?: Yes
Condition: Good
Discharge Problem:
Dyspnea
Instructions: Shortness of breath
Prescriptions:
No Action
dextromethorphan-guaifenesin 10-100 mg/5 mL Syrup
10 ml PO Q4HPRN PRN (Reason: cough) Qty: 125 0RF
Referrals:
NONE,* [Family Provider] -
Activity Restrictions/Additional Instructions:
If you develop increasing shortness of breath, chest pain, fever, repeated vomiting, or other worrisome signs, please return to the ER immediately.
Interventions
Interventions:
*Risk Screen - Suicide Last Done: 08/21/24 11:08
*General Assessment Last Done: 08/21/24 11:08
*Neglect/Abuse Screening Last Done: 08/21/24 11:08
ED- Fall Risk Assessment Last Done: 08/21/24 11:08
*ED COVID-19 Vaccine History Last Done: 08/21/24 11:08
ED- Cardiac Assessment Last Done: 08/21/24 11:40
ED- Pulmonary Assessment Last Done: 08/21/24 11:40
Discharge Date and Time
Print Language: GUAMANIAN
[2024-08-21] MEDS: DUONEB 3 ML INH (11:45)
--- NOTE | 2024-08-21 12:20 | EDRN ---
Pt was calling out to go to [facility] and was going to get up w/out assist off stretcher as could not wait. pt calling out over and over, 'they are going to just discharge me, send me out.' in a very very loud voice.
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
--- NOTE | 2024-08-21 12:37 | EDRN ---
Pt was given information on [facility] at this time.
[2024-08-21 12:39] LABS: COVID-19 Antigen Negative (Negative)
[2024-08-21 12:45] VITALS: BP 130/76
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
--- NOTE | 2024-08-21 12:59 | EDRN ---
Pt is discharged now and Merary Meier is now arranging for a [employer] car to pick pt up to take him to [facility].
--- NOTE | 2024-08-21 13:15 | EDRN ---
Caryl on its way. Pt just had BM in [facility] at this time. Pt yelling at ED PCT prior to using [facility] to take his sweater off.
--- NOTE | 2024-08-22 13:06 | CM ---
CM spoke with Tia from [facility]. She will forward this referral and follow up with patient.
== END 2024-08-21 13:18 | disposition home or self-care (01) ==
LOC: EMR 10:18
PROVIDERS: EMERGENCY PHYSICIAN Emergency Medicine
DX: R06.00 Dyspnea, unspecified (principal); R03.0 Elevated blood-pressure reading, without diagnosis of hypertension; F17.200 Nicotine dependence, unspecified, uncomplicated; Z11.52 Encounter for screening for COVID-19
CPT/HCPCS: 99284; 94640; 87502; 87811; 93005

== ENCOUNTER 2024-09-16 02:56 | Emergency (ER) | payer MEDICARE, SELFPAY ==
[2024-09-16 02:57] VITALS: BMI 29.4
[2024-09-16 03:00] VITALS: BP 168/94
[2024-09-16 04:00] VITALS: BP 178/98
[2024-09-16] MEDS: DUONEB 3 ML INH ×2 (04:00→06:36)
[2024-09-16 04:30] VITALS: BP 180/87
[2024-09-16 04:46] LABS: % Basophils 0.8 % (0-2); % Eosinophils 1.3 % (0-6); % Immature Granulocytes 0.4 % (0-0.5); % Lymphocytes 37.8 % (20.5-51.1); % Monocytes 9.4 % (1.7-9.3); % Neutrophils 50.3 % (42.2-75.2); Absolute Eosinophils 0.1 10^3/uL (0-0.7); Absolute Monocytes 0.5 10^3/uL (0.1-0.6); Absolute Neutrophils 2.6 10^3/uL (1.4-6.5); Hematocrit 42.7 % (39.0-52.0); Hemoglobin 14.5 g/dL (13.0-18.0); Mean Corpuscular Hgb 32.4 pg (27.0-31.0); Mean Corpuscular Volume 95.3 fL (80.0-94.0); Mean Platelet Volume 10.5 fL (7.4-10.4); Nucleated Red Blood Cells % 0 % (-); Platelet Count 188 10^3/uL (130-400); Red Blood Cell Count 4.48 10^6/uL (4.70-6.10); Red Cell Dist. Width 14.7 % (11.5-14.5); White Blood Cell Count 5.2 10^3/uL (4.8-10.8)
[2024-09-16 05:00] VITALS: BP 164/91
[2024-09-16 05:08] LABS: Blood Urea Nitrogen 12 mg/dl (9-20); Calcium 8.6 mg/dl (8.4-10.2); Carbon Dioxide 23 mmol/L (22-30); Chloride 107 mmol/L (98-107); Glucose 99 mg/dl (70-99); Potassium 4.1 mmol/L (3.5-5.1); Sodium 141 mmol/L (135-145); eGFR > 60.00
[2024-09-16 05:30] VITALS: BP 163/89
[2024-09-16] MEDS: DECADRON 10 MG IV (06:36)
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
[2024-09-16 09:19] VITALS: BP 193/94
--- NOTE | 2024-09-16 09:25 | EDRN ---
Patient complaining about the food ordered has not arrived becoming agitated. Speaking at a very rapid rate with room air SPO2 dipping down to 93% at the lowest without complications speaking full, loud sentences. Will make Dr. Flynn aware.
Spoke with crisis that the patient was looking to be admitted for mental health as he has depression and 'needs inpatient treatment.' Patient denies suicidal ideation stating he just needs inpatient help with his depression.
[2024-09-16] MEDS: ProAIR HFA INHALER 2 PUFF INH (09:50)
--- NOTE | 2024-09-16 13:56 | EDRN ---
Late note entry:
Patient belligerent about hot food that was ordered for him, accusing the staff of not doing anything for him while he is showing normal vitals and in no acute distress. Patient stating staff is 'bum rushing' him out of the hospital. This RN
reminded the patient that instead of discharging him when it was ordered earlier that we got him a hot meal, a nebulizer from pharmacy, case management, crisis consult all after he was to have left the department. Reminded him that everyone involved
is trying to help while he continues to yell and insult any staff member that he interacts with. Patient then demanded to leave after we arrange a LYFT ride for him. Patient refused prescriptions and discharge instructions while speaking
incomprehensibly and declining to repeat his statements for clarity. Discharged to waiting room with security made aware of patient's behavior.
--- NOTE | 2024-09-17 17:00 | CM ---
Patient back in ED following assessment by Crisis. Per physician no placement appropriate per Crisis. GERRY provided information regarding [facility] and called to [facility] and spoke with Karuna to see if there were any further resources
for patient. Karuna provided phone number for patient to call her in approx 15/20 min and she agreed to try to provide resources if possible. Physician in ED made aware.
== END 2024-09-16 10:20 | disposition home or self-care (01) ==
LOC: EMR 02:56
PROVIDERS: Emergency Medicine; EMERGENCY PHYSICIAN Emergency Medicine
DX: J44.1 Chronic obstructive pulmonary disease with (acute) exacerbation (principal); F17.210 Nicotine dependence, cigarettes, uncomplicated; I25.2 Old myocardial infarction; Z59.00 Homelessness unspecified
CPT/HCPCS: 94640; 96374; 99285; 71046; 80048; 85025; 93005

== ENCOUNTER 2024-09-17 14:47 | Emergency (ER) | payer MEDICARE, SELFPAY ==
[2024-09-17 14:52] VITALS: BP 196/90
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
== END 2024-09-17 18:27 | disposition home or self-care (01) ==
LOC: EMR 14:47
PROVIDERS: EMERGENCY PHYSICIAN Emergency Medicine
DX: F20.9 Schizophrenia, unspecified (principal); F32.A Depression, unspecified; F17.210 Nicotine dependence, cigarettes, uncomplicated; I25.2 Old myocardial infarction; Z59.00 Homelessness unspecified
CPT/HCPCS: 99283

== ENCOUNTER 2025-04-09 05:34 | Emergency (ER) | payer MEDICARE, SELFPAY ==
[2025-04-09 05:44] VITALS: BP 192/102
[2025-04-09 05:51] VITALS: BMI 28.4
[2025-04-09 06:01] VITALS: BP 174/94
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
[2025-04-09 10:30] VITALS: BP 177/87
== END 2025-04-09 10:15 | disposition home or self-care (01) ==
LOC: EMR 05:34
PROVIDERS: EMERGENCY PHYSICIAN Emergency Medicine
DX: Z59.00 Homelessness unspecified (principal); R03.0 Elevated blood-pressure reading, without diagnosis of hypertension; F20.9 Schizophrenia, unspecified; F32.A Depression, unspecified; I25.2 Old myocardial infarction; F17.200 Nicotine dependence, unspecified, uncomplicated
CPT/HCPCS: 99283

== ENCOUNTER 2025-04-15 19:39 | Emergency (ER) | payer MEDICARE, SELFPAY ==
[2025-04-15 19:42] VITALS: BP 180/94
[2025-04-15 20:19] VITALS: BP 154/108
[2025-04-15 20:20] VITALS: BMI 28.8
[2025-04-15 22:00] VITALS: BP 159/78
[2025-04-15 22:01] VITALS: BP 159/78
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
[2025-04-15 22:09] LABS: Hematocrit 42.3 % (39.0-52.0); Hemoglobin 14.5 g/dL (13.0-18.0); Mean Corp Hgb Conc. 34.3 g/dL (33.0-37.0); Mean Corpuscular Volume 97.2 fL (80.0-94.0); Platelet Count 158 10^3/uL (130-400); Red Cell Dist. Width 12.5 % (11.5-14.5)
[2025-04-15 22:41] LABS: Blood Urea Nitrogen 16 mg/dl (9-20); Calcium 8.6 mg/dl (8.4-10.2); Carbon Dioxide 25 mmol/L (22-30); Chloride 106 mmol/L (98-107); Estimated Creatinine Clearance 90 ml/min; Glucose 101 mg/dl (70-99); Potassium 4.4 mmol/L (3.5-5.1); Sodium 135 mmol/L (135-145); eGFR > 60.00
== END 2025-04-15 23:10 | disposition home or self-care (01) ==
LOC: EMR 19:39
PROVIDERS: EMERGENCY PHYSICIAN Emergency Medicine
DX: R06.81 Apnea, not elsewhere classified (principal); I25.2 Old myocardial infarction; F17.210 Nicotine dependence, cigarettes, uncomplicated; Z59.00 Homelessness unspecified
CPT/HCPCS: 99284; 71046; 80048; 85027

== ENCOUNTER 2025-04-28 00:19 | Inpatient (IN) | payer MEDICARE, SELFPAY ==
[2025-04-27 20:05] VITALS: BP 151/84
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
[2025-04-27 21:50] LABS: Hematocrit 41.7 % (39.0-52.0); Hemoglobin 14.5 g/dL (13.0-18.0); Mean Corp Hgb Conc. 34.8 g/dL (33.0-37.0); Mean Corpuscular Volume 97.4 fL (80.0-94.0); Nucleated Red Blood Cells % 0 % (-); Platelet Count 160 10^3/uL (130-400); Red Cell Dist. Width 12.2 % (11.5-14.5)
[2025-04-27 21:56] VITALS: BMI 33.9
[2025-04-27 22:10] LABS: COVID-19 Antigen Negative (Negative)
[2025-04-27 22:19] LABS: ALT (SGPT) 26 U/L (0-50); AST (SGOT) 25 U/L (17-59); Albumin 3.8 g/dl (3.5-5.0); Alkaline Phosphatase 57 U/L (38-126); Blood Urea Nitrogen 13 mg/dl (9-20); Calcium 8.5 mg/dl (8.4-10.2); Carbon Dioxide 25 mmol/L (22-30); Chloride 102 mmol/L (98-107); Estimated Creatinine Clearance 119 ml/min; Glucose 104 mg/dl (70-99); Potassium 3.7 mmol/L (3.5-5.1); Sodium 132 mmol/L (135-145); Total Protein 6.6 g/dl (6.3-8.2); eGFR > 60.00
[2025-04-27 22:33] LABS: Troponin I 0.047 ng/ml
[2025-04-27 22:51] VITALS: BP 159/92
[2025-04-27] MEDS: LOW STRENGTH ASPIRIN 324 MG PO (22:53)
[2025-04-27] MEDS: LASIX 40 MG IV (22:53)
--- NOTE | 2025-04-27 22:55 | W.PN.UPDATE ---
Update Note
Progress Note Update
Patient seen in conjunction with nurse practitioner. I agree with the findings on history and physical, and concur with assessment and plan listed otherwise.
Briefly, this is a 75-year-old smoker with history of COPD not currently on any medications, homelessness, schizophrenia who initially presented to the emergency department for difficulty walking/ambulatory dysfunction however stated complaint of
shortness of breath for about 1 week. Says he has been increasingly short of breath and tachypneic. Denies having any chest pain nausea or diaphoresis.
Patient is an intermittent smoker. Denies new productive cough. Reports worsening exertional dyspnea.
On my examination does have trace crackles at the bases bilaterally, no wheezing. No reproducible chest pain. There is and no observable elevated JVD. He has 1+ edema to the shins bilaterally.
Workup in the emergency department showed hypertension with her blood pressure 150/84 and pulse of 194 he was breathing at a rate of 93 and satting 93% on room air. He was afebrile. X-ray shows cardiomegaly and increased pulmonary vascular
prominence. No pleural effusion noted. ECG we did some normal sinus rhythm at a rate of 83 PACs, nonspecific ST-T wave changes and unchanged from prior. COVID and flu were negative. Troponin was 0.047. BNP was 2900. CBC was unremarkable.
Electrolytes BUN and creatinine were all in the normal range.
Assessment and plan
Shortness of breath�CHF exacerbation, cannot rule out COPD exacerbation entirely. Mildly hypoxic at this time. No evidence of CO2 retention. No evidence of influenza or COVID at this time and no evidence of pneumonia.
- Admit to telemetry
- Start Lasix 40 mg IV twice daily for now
- Daily weights and ins and outs
- Echocardiogram in a.m.
- Start low-dose ARB
- Additional GDMT pending echocardiogram
Elevated troponin -suspect nonischemic myocardial injury. ECG is nonischemic and patient has no chest pain. No known diabetes although cannot entirely rule out ACS equivalent.
- Aspirin 324 x 1
- Continue aspirin 81 mg daily for now, no known risk factors
- Echo as above
-Trend troponin
- Cardiology consultation
Tobacco dependence/COPD -
- DuoNebs prn
Schizophrenia -no medication
- Monitor for now, as needed diazepam as needed for agitation
Homelessness
- Case management
DVT prophylaxis�Lovenox subcu
CODE STATUS�full code
--- NOTE | 2025-04-27 22:55 | HPS.HSE ---
Family Physician
-
Family Physician: * NONE
Chief Complaint
-
Shortness of breath, DUBON, cough
History of Present Illness
75-year-old male who is reportedly homeless is complaining of shortness of breath with cough and feeling like he is wheezing. He reports his shortness of breath has gotten worse over the past week but today had extreme dyspnea on exertion with
walking. He is an active smoker when he has access to his Social Security that goes directly to his bank. He reports he is currently sleeping behind a [employer]. He also complains of chronic ongoing ambulatory dysfunction for 1 year with bilateral
knee pain. He has not been on medication for his schizophrenia anxiety depression since the 1970s. He currently takes no medications. He denies current headache, blurred vision, sore throat, chest pain, palpitations, abdominal pain, nausea,
vomiting, diarrhea.
He has past medical history schizophrenia, anxiety, depression, nicotine abuse, chronic ambulatory dysfunction, memory impairment, SKAGWAY
Medical History
Past Medical History
Past Medical History: Reports Other
Additional Past Medical History:
schizophrenia
anxiety
depression
nicotine abuse
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
memory impairment
SKAGWAY
Past Surgical History: Reports Other
Additional Past Surgical History:
Left hip surgery
CTR right hand
Social History
Tobacco: Smoker (Varies based on patient's income he states)
Alcohol: None
Drug: None
Personal: Single
Living: Homeless
Employment: Retired
Family History
Family History: Not pertinent
Allergies / Home Medications
Allergies reflects when Allergies were last updated in [facility].
Home Medications with original date entered in [facility]
Allergy/Medication List:
Allergies
Allergy/AdvReac Type Severity Reaction Status Date / Time
No Known Allergies Allergy Verified 04/27/25 20:05
Home Medications
No Meds [No Current Medications] 04/09/25
Review of Systems
-
History Source: Patient
A 12 point ROS was completed and negative except as noted: Yes
Constitutional: Reports Fatigue; Denies Chills
EENT: Denies Sore Throat or Runny Nose
Respiratory: Reports Cough and Trouble Breathing (DUBON); Denies Hemoptysis
Cardiac: Denies Chest Pain, Diaphoresis, Palpitations or Syncope
Abdomen/GI: Denies Abdominal Pain, Nausea, Vomiting, Diarrhea, Constipated or Bloody Stools
: Denies Dysuria, Frequency, Flank Pain, Incontinence or Difficulty Voiding
Musculoskeletal: Denies Joint Pain or Edema
Skin: Denies Itching or Rash
Neurological: Denies Dizzy, Headache or Weakness
Endocrine: Reports No Symptoms
Hematologic/Lymphatic: Reports No Symptoms
Psych: Reports Calm
Physical Exam
Vital Signs
Vital Signs
Temp Pulse Resp BP Pulse Ox
98.8 F 94 33 159/92 93
04/27/25 20:05 04/27/25 22:53 04/27/25 22:36 04/27/25 22:53 04/27/25 22:36
Physical Exam
General: Conversant and Other (Tachypneic); No Pain, Fever or Chills
HEENT: NormoCephalic, Anicteric, Moist mucous membranes, PERRLA, [place] Conjunctivae and No Ptosis
Respiratory: Clear; No Wheezes, Rales or Rhonchi
Cardiac: S1/S2 and Regular Rhythm; No Murmur, Rub, Gallop or Peripheral Edema
Breast: Deferred by me
GI: Soft, Non Tender, Non Distended, Normal Bowel Sounds and No Hepatosplenomegaly
Rectal: Deferred by Provider
Genito-urinary: Deferred by me
Musculoskeletal: No Clubbing, No Cyanosis and No Edema
Skin: Warm and Dry; No Rash or Jaundice
Neuro: AO x 3, No Motor Deficits, Cranial Nerves Intact and No Sensory Deficits; No Slurred Speech, Facial Droop, Tremors or Sedated
Psych: Calm
Laboratory Results
-
04/27/25 21:43
04/27/25 21:43
Laboratory Results
Total Bilirubin 1.2 mg/dl (0.2-1.3) 04/27/25 21:43
AST 25 U/L (17-59) 04/27/25:43
ALT 26 U/L (0-50) 04/27/25 21:43
Alkaline Phosphatase 57 U/L (38-126) 04/27/25:43
Troponin I 0.047 ng/ml H* 04/27/25:43
Impression/Plan
-
Impression/plan:
Admit to telemetry
#Acute CHF
BNP 2910
I&O, daily weights
- IV Lasix 40 mg given in ER continue IV Lasix 40 mg daily
- 2D echo
- Nitro sublingual
- PT/OT/case management patient is homeless looking for housing
CXR: 1 mild cardiomegaly
2. Slightly increased pulmonary vascularity which could represent mild CHF or acute pulmonary edema
#Nonischemic myocardial injury
Troponin 0.047 will trend
-Will give aspirin 81 mg daily start losartan 25 mg daily
EKG sinus rhythm with PACs 83 bpm, QTc 484 MS
#Schizophrenia
- Not medicated
#Anxiety/depression
- Not medicated
#Chronic ambulatory dysfunction due to bilateral knee pain
- Does not use any assistive device
#Memory impairment reported
#SKAGWAY
DVT prophylaxis
Subcu Lovenox
Full code
[2025-04-27] MEDS: NITROSTAT (SUBLINGUAL) 0.4 MG SL (23:18)
[2025-04-27] MEDS: COZAAR 25 MG PO (23:22)
[2025-04-28] VITALS (8 sets, daily range): BP systolic 123–160; BP diastolic 73–100; PULSE 81; O2SAT 95; BMI 27.6; BMI 26.7
[2025-04-28] MEDS: COZAAR 25 MG PO (08:12)
[2025-04-28] MEDS: LASIX 40 MG IV (08:13)
--- NOTE | 2025-04-28 08:25 | CON.CAR ---
Addendum entered and electronically signed by Wilberto Lerner MD 04/28/25 14:54:
I saw and evaluated the patient, and I provided the substantive portion of the medical decision making.
I reviewed and agree with the note by Ms King and it accurately reflects our care.
I personally performed the medical decision making of the this encounter and my assessment and plan is below:
Acute HF exacerbation
- IV diuresis
- echo wednesday
Original Note:
Consultation
Consultation Request
Date/Time Consultation Requested: 04/28/2025729
Date/Time Consultation Performed: 04/28/2025 0800
Requesting Provider: Dr. Ovalle
Performing Provider: Dr. Lerner
Reason for Consultation: SOB
Medical History
-
Chief Complaint: SOB
History of Present Illness:
75 y/o homeless man who presented to ER with worsening DUBON. He notes he has had it at least 1 yr but worsened over last week. He notes it more with walking and trying to sleep. At rest he usually is okay. No CP associated. He denies LE edema.
Currently does not take any medications. He does not recall having any cardiac history.
Past Medical History
Past Medical History: Other (schizophrenia,anxiety, depression, tobacco abuse)
Past Surgical History: Other (L hip surgery)
Social History
Tobacco: Smoker (currently 1/2 pk/day when able )
Alcohol: None
Drug: None
Living: Homeless
Family History
Family History: Reviewed & Not Pertinent
Allergies / Home Medications
Allergy/AdvReac Type Severity Reaction Status Date / Time
No Known Allergies Allergy Verified 04/27/25 20:05
�Medication �Instructions �Recorded �Confirmed �Type
No Meds [No Current Medications] 04/09/25 04/27/25 History
Review of Systems
-
History Source: Patient
Constitutional: No Symptoms
EENT: No Symptoms
Respiratory: Cough and Trouble Breathing
Cardiac: No Symptoms
Abdomen/GI: No Symptoms
: No Symptoms
Musculoskeletal: No Symptoms
Neurological: No Symptoms
Physical Exam
Vital Signs
Temp Pulse Resp BP Pulse Ox
98.4 F 68 18 160/93 93
04/28/25 07:48 04/28/25 07:48 04/28/25 07:48 04/28/25 07:48 04/28/25 07:48
Lab Results
04/28/25 06:00
04/28/25 06:00
Troponin I Cancelled 04/28/25 06:00
Eru-F-Fiibnxevnxb Pept 2910 pg/ml 04/27/25 21:43
Physical Exam
General: Well Developed and No Apparent Distress
HEENT: Normocephalic and Moist Mucous Membranes
Respiratory: Wheezes (bilat R > L )
Cardiac: S1/S2 and Regular Rhythm
Breast: N/A
GI: Soft, Non Tender and Normal Bowel Sounds
Musculoskeletal: No Cyanosis and No Edema
Skin: Warm
Neuro: Awake and Alert
Psych: Calm
Impression / Plan
-
Acute CHF unknown type:
-BNP 2910, CXR suggestive of congestion
-no prior history
-Con't IV lasix, requires intense monitoring
-fluid /sodium restrictions
-troponin 0.047, trend troponin, EKG with non specific ST abn.
-con't low dose asa
-echo
hypertension:
-pt. hypertensive on admit
-con't with diuresis
-losartan initiated this admit
Tobacco abuse:
-encourage cessation.
Schizophrenia/depression/anxiety:
-per primary team
Data Reviewed
-
EKG: Tracing Personally Visualized and interpreted (NSR 83 bpm, PAC, non specific ST abn)
Radiology: Report Reviewed by me (CXR 04/27/25 Mild cardiomegaly. Slightly increased pulmonary vascularity which could represent mild CHF or acute pulmonary edema.)
Labs: Labs Reviewed by me, Discussed with Nurse and Discussed with Patient
[2025-04-28 09:24] LABS: Troponin I 0.035 ng/ml
[2025-04-28] MEDS: LOW STRENGTH ASPIRIN 81 MG PO (10:17)
[2025-04-28] MEDS: DESENEX/MITRAZOL/ZEASORB 1 APPLIC TOPICAL ×2 (12:28→19:41)
[2025-04-28 12:38] LABS: Blood Urea Nitrogen 14 mg/dl (9-20); Calcium 8.4 mg/dl (8.4-10.2); Carbon Dioxide 30 mmol/L (22-30); Chloride 102 mmol/L (98-107); Estimated Creatinine Clearance 80 ml/min; Glucose 106 mg/dl (70-99); Potassium 4.2 mmol/L (3.5-5.1); Sodium 139 mmol/L (135-145); eGFR > 60.00
--- NOTE | 2025-04-28 13:05 | W.PN.HOSP.TC ---
Today's Communication/Plan
-
Assessment / Plan
Assessment / Plan
General: No Apparent Distress, disheveled
HEENT: NormoCephalic, Moist mucous membranes, Atraumatic
Respiratory: Mild rales bilateral bases, mild scattered expiratory wheezes bilaterally, Non Labored Respirations
Cardiac: S1/S2 and Regular Rhythm; No Rub or Gallop
GI: Soft, Non Tender, Non Distended and Normal Bowel Sounds
Musculoskeletal: Mild lower extremity edema, no deformity
Skin: Warm and dry
: NO Gao
Neuro: Awake, Alert, Nonfocal/grossly intact
Psych: Calm and cooperative
Mr. Vee is a 75-year-old male with a medical history of schizophrenia, memory impairment, nicotine abuse, and ambulatory dysfunction due to bilateral knee pain who presented with cough and shortness of breath. He reports being homeless and has
recently been sleeping behind a [employer]. He reports not being on any outpatient medications since the . He is a current smoker. He was afebrile and moderately hypertensive in the ED. He was saturating in the low to mid 90s on room air.
Labs were significant for no leukocytosis and a mild hyponatremia of 132, mildly elevated troponin of 0.047 which downtrended to 0.035, and a significant elevated BNP of 2910. Respiratory panel was negative for COVID or influenza. Chest imaging
did show pulmonary edema. He was given a dose of IV Lasix and admitted for further evaluation and management of suspected new onset CHF.
Acute CHF:
- New onset, unclear type
- Echocardiogram pending
- Continue diuresis with Lasix 40 mg IV daily
- Monitor I's and O's and daily weights, suspect discrepancy in initial weight measured at 110 kg as he has dropped to 89.1 kg already this morning
- Cardiology following, guidance appreciated
- Started on afterload reduction with losartan 25 mg daily this admission
- Continue low-dose aspirin
COPD:
- Chronic half a pack per day smoker, encouraged cessation, nicotine patch provided
- Mild expiratory wheezing bilaterally
- Not on any scheduled inhalers as outpatient, does not follow-up with a digital marketing manager
- DuoNebs ordered as needed
- Supplemental oxygen if needed to maintain pulse ox between 88 and 92%
Hyponatremia:
- Mild, likely hypervolemic in the setting of new onset CHF
- Now resolved, will monitor
Schizophrenia:
- Chronic, reports not being on any medication since the
- Outpatient follow-up
DVT prophylaxis: Lovenox
CODE STATUS: Full code
Dispo: Case management involved for assistance considering homelessness and likely need for new medications at discharge
Anticipated Discharge: > 48 hours
Subjective/Interval History
-
Date of Service: April 28, 2025
Patient was seen and examined at bedside this morning. Reports breathing more comfortably with ongoing diuresis.
Objective Data
-
Labs:
Laboratory Results
04/28/25
10:46
Sodium 139
Potassium 4.2
Chloride 102
Carbon Dioxide 30
BUN 14
Creatinine 0.9
Glucose 106 H
Calcium 8.4
Vital Signs:
Vital Signs
Temp Pulse Resp BP Pulse Ox
98.3 F 73 16 150/89 97
04/28/25 11:13 04/28/25 11:13 04/28/25 11:13 04/28/25 11:13 04/28/25 11:13
I&O
04/27/25 04/28/25 04/29/25
06:59 06:59 06:59
Intake Total 480 / 480
Output Total 1500 / 1500 1000 / 1000
Balance -1500 / -1500 -520 / -520
Review of Systems
-
History Source: Patient
All other systems: Reviewed and negative
Physical Exam
-
General: No Apparent Distress
[2025-04-28] MEDS: LOVENOX SC (16:25)
[2025-04-28] MEDS: NICODERM TRANSDERMAL 14 MG TRANSDERM (16:26)
[2025-04-28] MEDS: DUONEB 3 ML INH (18:37)
[2025-04-28] MEDS: ROBITUSSIN DM 5 ML PO (19:41)
[2025-04-28] MEDS: MELATONIN 5 MG PO (21:45)
[2025-04-29 03:15] VITALS: BP 145/67
[2025-04-29] MEDS: ROBITUSSIN DM 5 ML PO ×4 (03:46→22:09)
[2025-04-29 06:00] VITALS: BMI 26.6
[2025-04-29 07:10] VITALS: BP 160/92
[2025-04-29] MEDS: COZAAR 25 MG PO (08:25)
[2025-04-29] MEDS: DESENEX/MITRAZOL/ZEASORB 1 APPLIC TOPICAL ×2 (08:25→19:48)
[2025-04-29] MEDS: NICODERM TRANSDERMAL 14 MG TRANSDERM (08:25)
[2025-04-29] MEDS: LOW STRENGTH ASPIRIN 81 MG PO (08:25)
[2025-04-29] MEDS: LASIX 40 MG IV ×2 (10:25→19:46)
[2025-04-29] MEDS: SENOKOT-S 1 TABLET PO ×2 (10:25→19:47)
[2025-04-29 10:57] LABS: Hematocrit 43.6 % (39.0-52.0); Hemoglobin 14.7 g/dL (13.0-18.0); Mean Corp Hgb Conc. 33.7 g/dL (33.0-37.0); Mean Corpuscular Volume 100.0 fL (80.0-94.0); Nucleated Red Blood Cells % 0 % (-); Platelet Count 170 10^3/uL (130-400); Red Cell Dist. Width 12.2 % (11.5-14.5)
[2025-04-29 11:09] LABS: Blood Urea Nitrogen 13 mg/dl (9-20); Calcium 8.5 mg/dl (8.4-10.2); Carbon Dioxide 32 mmol/L (22-30); Chloride 103 mmol/L (98-107); Estimated Creatinine Clearance 90 ml/min; Glucose 108 mg/dl (70-99); Potassium 4.2 mmol/L (3.5-5.1); Sodium 138 mmol/L (135-145); eGFR > 60.00
[2025-04-29 11:48] VITALS: BP 171/94
--- NOTE | 2025-04-29 12:16 | PTCARENOTE ---
BP 171/94, Dr. Bianchi aware. Awaiting new orders.
--- NOTE | 2025-04-29 12:44 | W.PN.CD ---
Today's Communication / Plan
-
IV lasix bid
losartan to 50 mg
Impression / Plan
-
Acute CHF unknown type:
- Does not appear to have too mcuh HF will increase lasix to BID for last day of diuresis
-BNP 2910, CXR suggestive of congestion
-no prior history
-Con't IV lasix, requires intense monitoring
-fluid /sodium restrictions
-troponin 0.047, trend troponin, EKG with non specific ST abn.
-con't low dose asa
-echo
hypertension:
-pt. hypertensive on admit
-con't with diuresis
-losartan increase to 50
Tobacco abuse:
-encourage cessation.
Schizophrenia/depression/anxiety:
-per primary team
Subjecitve: cont to complain of DUBON
Physical Exam
Vital Signs/Labs
Vital Signs
Temp Pulse Resp BP Pulse Ox
97.9 F 71 18 171/94 94
04/29/25 11:48 04/29/25 11:48 04/29/25 11:48 04/29/25 11:48 04/29/25 11:48
04/28/25 04/29/25 04/30/25
06:59 06:59 06:59
Actual Weight 196 lb 9.6 oz 196 lb 2 oz
04/29/25 10:17
04/29/25 10:17
Magnesium Cancelled 04/28/25 06:00
Triglycerides Cancelled 04/28/25 06:00
LDL Cholesterol, Calc Cancelled 04/28/25 06:00
VLDL Cholesterol, Calc Cancelled 04/28/25 06:00
HDL Cholesterol Cancelled 04/28/25 06:00
04/27/25
21:43
Ycq-L-Udiqaqgdxzx Pept 2910
LAB Results
04/27/25 04/28/2504/28/25
21:43 01:00 06:00
Troponin I 0.047 H* Cancelled Cancelled
04/28/25
08:27
Troponin I 0.035 H*
Physical Exam
Constitutional: No acute distress and Comfortable
EENT: Anicteric
Cardiovascular: Rhythm & rate is regular and Pedal edema is absent
Respiratory: Respiratory effort normal and Lungs clear to auscul.
GI: Soft
Neuro/Psych: Alert and Oriented
Data Reviewed
-
Date of Service: April 29, 2025
EKG: Tracing Personally Visualized and interpreted ( pac)
Echo: Ordered by me
Labs: Labs Reviewed by me
[2025-04-29] MEDS: COREG 6.25 MG PO ×2 (12:55→19:46)
--- NOTE | 2025-04-29 14:22 | W.PN.HOSP.TC ---
Today's Communication/Plan
-
Assessment / Plan
Assessment / Plan
General: No Apparent Distress, disheveled
HEENT: NormoCephalic, Moist mucous membranes, Atraumatic
Respiratory: Mild rales bilateral bases, mild scattered expiratory wheezes bilaterally, Non Labored Respirations
Cardiac: S1/S2 and Regular Rhythm; No Rub or Gallop
GI: Soft, Non Tender, Non Distended and Normal Bowel Sounds
Musculoskeletal: Mild lower extremity edema, no deformity
Skin: Warm and dry
: NO Gao
Neuro: Awake, Alert, Nonfocal/grossly intact
Psych: Calm and cooperative
Mr. Vee is a 75-year-old male with a medical history of schizophrenia, memory impairment, nicotine abuse, and ambulatory dysfunction due to bilateral knee pain who presented with cough and shortness of breath. He reports being homeless and has
recently been sleeping behind a [employer]. He reports not being on any outpatient medications since the . He is a current smoker. He was afebrile and moderately hypertensive in the ED. He was saturating in the low to mid 90s on room air.
Labs were significant for no leukocytosis and a mild hyponatremia of 132, mildly elevated troponin of 0.047 which downtrended to 0.035, and a significant elevated BNP of 2910. Respiratory panel was negative for COVID or influenza. Chest imaging
did show pulmonary edema. He was given a dose of IV Lasix and admitted for further evaluation and management of suspected new onset CHF.
Acute CHF:
- New onset, unclear type
- Echocardiogram pending
- Continue diuresis with Lasix 40 mg IV daily
- Monitor I's and O's and daily weights, suspect discrepancy in initial weight measured at 110 kg as he has dropped to 88.9 kg already this morning
- Started beta-blockade with carvedilol 6.25 mg p.o. twice daily
- Losartan started this admission, increasing dose to 50 mg daily
- Cardiology following, guidance appreciated
- Continue low-dose aspirin
COPD:
- Chronic half a pack per day smoker, encouraged cessation, nicotine patch provided
- Mild expiratory wheezing bilaterally
- Not on any scheduled inhalers as outpatient, does not follow-up with a medical coding manager
- DuoNebs ordered as needed
- Will give short course of oral steroids, azithromycin
- Supplemental oxygen if needed to maintain pulse ox between 88 and 92%
Hyponatremia:
- Mild, likely hypervolemic in the setting of new onset CHF
- Now resolved, will monitor
Schizophrenia:
- Chronic, reports not being on any medication since the
- Outpatient follow-up
DVT prophylaxis: Lovenox
CODE STATUS: Full code
Dispo: Case management involved for assistance considering homelessness and likely need for new medications at discharge
Anticipated Discharge: 24 - 48 hours
Subjective/Interval History
-
Date of Service: April 29, 2025
Patient was seen and examined at bedside this morning. Continues to complain of productive cough.
Objective Data
-
Labs:
Laboratory Results
04/29/25
10:17
WBC 6.6
Hgb 14.7
Hct 43.6
Plt Count 170
Sodium 138
Potassium 4.2
Chloride 103
Carbon Dioxide 32 H
BUN 13
Creatinine 0.8
Glucose 108 H
Calcium 8.5
Vital Signs:
Vital Signs
Temp Pulse Resp BP Pulse Ox
97.9 F 71 18 171/94 94
04/29/25 11:48 04/29/25 11:48 04/29/25 11:48 04/29/25 11:48 04/29/25 11:48
I&O
04/28/25 04/29/25 04/30/25
06:59 06:59 06:59
Intake Total 1860 / 1860
Output Total 1500 / 1500 2074 / 2074 1325 / 1325
Balance -1500 / -1500 -215 / -215 -1325 / -1325
Review of Systems
-
History Source: Patient
All other systems: Reviewed and negative
Respiratory: Reports Cough
Physical Exam
-
General: No Apparent Distress
[2025-04-29 15:06] VITALS: BP 145/94
[2025-04-29] MEDS: ZITHROMAX INFUSION 250 IV (15:19)
[2025-04-29] MEDS: DELTASONE 40 MG PO (15:20)
[2025-04-29] MEDS: LOVENOX SC (15:23)
--- NOTE | 2025-04-29 18:42 | PTCARENOTE ---
Patient received approximately half of Azithromycin infusion when patient insisted infusion be stopped, refusing further IV antibiotics because it is 'making me sick.' Dr. Bianchi aware.
[2025-04-29 19:00] VITALS: BP 155/89
[2025-04-29] MEDS: MELATONIN 5 MG PO (19:47)
[2025-04-29] MEDS: AUGMENTIN 875 MG/125 MG 1 TABLET PO (19:47)
[2025-04-29 23:09] VITALS: BP 159/87
[2025-04-30 03:00] VITALS: BP 138/70
[2025-04-30] MEDS: ROBITUSSIN DM 5 ML PO ×4 (06:17→22:11)
[2025-04-30 07:00] VITALS: BP 154/95
--- NOTE | 2025-04-30 08:08 | W.PN.CD ---
Addendum entered and electronically signed by ANALISA Arriaga 04/30/25 09:21:
Aldactone stopped. Concerned with follow-up given homelessness and outpatient labs.
Echocardiogram today
Original Note:
Today's Communication / Plan
-
add aldactone
transition to po lasix
echo
Impression / Plan
-
Acute CHF unknown type:
- Does not appear to have too much HF will increase lasix to BID for last day of diuresis
-BNP 2910, CXR suggestive of congestion
-no prior history
-Transition IV lasix to po lasix today
-fluid /sodium restrictions
-on ARB/BB
-would sglt2i if affordable
-will add aldactone
-echo
Nonischemic troponin elevation in the setting of CHF and acute COPD
--troponin 0.047, trend troponin, EKG with non specific ST abn.
-con't low dose asa given smoker.
hypertension:
-pt. hypertensive on admit
-con't with diuresis
-losartan increase to 50
Tobacco abuse:
-encourage cessation.
Schizophrenia/depression/anxiety:
-per primary team
Subjecitve: cont to complain of DUBON and cough productive of sputum, no improvement with weight loss
Physical Exam
Vital Signs/Labs
Vital Signs
Temp Pulse Resp BP Pulse Ox
98.7 F 88 20 154/95 96
04/30/25 07:00 04/30/25 07:00 04/30/25 07:00 04/30/25 07:00 04/30/25 07:00
04/29/25 04/30/25 05/01/25
06:59 06:59 06:59
Actual Weight 196 lb 2 oz
Magnesium Cancelled 04/28/25 06:00
Triglycerides Cancelled 04/28/25 06:00
LDL Cholesterol, Calc Cancelled 04/28/25 06:00
VLDL Cholesterol, Calc Cancelled 04/28/25 06:00
HDL Cholesterol Cancelled 04/28/25 06:00
04/27/25
21:43
Omh-P-Gbumvafsuud Pept 2910
LAB Results
04/27/25 04/28/25 04/28/25
21:43 01:00 06:00
Troponin I 0.047 H* Cancelled Cancelled
04/28/25
08:27
Troponin I 0.035 H*
Physical Exam
Constitutional: No acute distress
Cardiovascular: Rhythm & rate is regular, Pedal edema is absent, JVD pressure is normal, Systolic murmur absent and Diastolic murmur absent
Respiratory: Respiratory effort normal, Lungs clear to auscul., Wheeze Absent, Crackles Absent and Rhonchi Absent
Neuro/Psych: AO x 3
Data Reviewed
-
Date of Service: April 30, 2025
EKG: Other (tele with sinus with pac)
[2025-04-30 09:13] LABS: Hematocrit 43.8 % (39.0-52.0); Hemoglobin 14.5 g/dL (13.0-18.0); Mean Corp Hgb Conc. 33.1 g/dL (33.0-37.0); Mean Corpuscular Volume 97.6 fL (80.0-94.0); Nucleated Red Blood Cells % 0 % (-); Platelet Count 179 10^3/uL (130-400); Red Cell Dist. Width 12.1 % (11.5-14.5)
[2025-04-30 09:32] LABS: Blood Urea Nitrogen 17 mg/dl (9-20); Calcium 8.9 mg/dl (8.4-10.2); Carbon Dioxide 32 mmol/L (22-30); Chloride 102 mmol/L (98-107); Estimated Creatinine Clearance 80 ml/min; Glucose 78 mg/dl (70-99); Potassium 3.2 mmol/L (3.5-5.1); Sodium 137 mmol/L (135-145); eGFR > 60.00
--- NOTE | 2025-04-30 10:05 | CARDSERVLU ---
Echocardiogram with [facility] completed after protocol screening completed. Allergies verified.
Patent IV site: _L wrist____
IV site flushed with 0.9% NaCl pre and post administration.
Diluted bolus method utilized to enhance visualization of ventricular ordoñez.
Total volume given: __2.5__ mL
Patient tolerated all procedures well without complications.
[2025-04-30] MEDS: NICODERM TRANSDERMAL 14 MG TRANSDERM (10:40)
[2025-04-30] MEDS: COZAAR 50 MG PO (10:40)
[2025-04-30] MEDS: LOW STRENGTH ASPIRIN 81 MG PO (10:40)
[2025-04-30] MEDS: DELTASONE 40 MG PO (10:40)
[2025-04-30] MEDS: SENOKOT-S 1 TABLET PO ×2 (10:40→19:58)
[2025-04-30] MEDS: AUGMENTIN 875 MG/125 MG 1 TABLET PO ×2 (10:40→19:58)
[2025-04-30] MEDS: COREG 6.25 MG PO ×2 (10:40→19:58)
[2025-04-30] MEDS: LASIX 40 MG PO (10:41)
[2025-04-30] MEDS: DESENEX/MITRAZOL/ZEASORB 1 APPLIC TOPICAL ×2 (10:41→20:01)
[2025-04-30] MEDS: LASIX IV (10:47)
[2025-04-30] MEDS: KCL 40 MEQ PO (10:48)
[2025-04-30 11:02] VITALS: BP 152/70
--- NOTE | 2025-04-30 13:21 | W.PN.HOSP.TC ---
Today's Communication/Plan
-
Continue diuretics per cardiology
Taper prednisone
Consult psychiatry
Assessment / Plan
Assessment / Plan
Mr. Vee is a 75-year-old male with a medical history of schizophrenia, memory impairment, nicotine abuse, and ambulatory dysfunction due to bilateral knee pain who presented with cough and shortness of breath. He reports being homeless and has
recently been sleeping behind a [employer]. He reports not being on any outpatient medications since the 1970s. He is a current smoker. He was afebrile and moderately hypertensive in the ED. He was saturating in the low to mid 90s on room air.
Labs were significant for no leukocytosis and a mild hyponatremia of 132, mildly elevated troponin of 0.047 which downtrended to 0.035, and a significant elevated BNP of 2910. Respiratory panel was negative for COVID or influenza. Chest imaging
did show pulmonary edema. He was given a dose of IV Lasix and admitted for further evaluation and management of suspected new onset CHF.
Acute CHF with preserved EF
- New onset
- Echocardiogram EF of 50 to 55%. No wall motion abnormality. Grade 3 diastolic dysfunction. Severe LA enlargement. Mild MR noted.
- Continue diuresis with Lasix-switch to orals today
- Monitor I's and O's and daily weights
- Started beta-blockade with carvedilol 6.25 mg p.o. twice daily
- Losartan started this admission, increasing dose to 50 mg daily
- Cardiology following, guidance appreciated
- Continue low-dose aspirin
COPD:
- Chronic half a pack per day smoker, encouraged cessation, nicotine patch provided
- Chest clear today
- Not on any scheduled inhalers as outpatient, does not follow-up with a skilled nursing facilities professional
- DuoNebs ordered as needed
- Will give short course of oral steroids, azithromycin-start tapering steroids
- Supplemental oxygen if needed to maintain pulse ox between 88 and 92%-on room air
Hyponatremia:
- Mild, likely hypervolemic in the setting of new onset CHF
- Now resolved, will monitor
Hypokalemia-replete
Schizophrenia:
- Chronic, reports not being on any medication since the
- Outpatient follow-up
- Patient homeless. Consult psychiatry
DVT prophylaxis: Lovenox
CODE STATUS: Full code
Dispo: Case management involved for assistance considering homelessness and likely need for new medications at discharge
Anticipated Discharge: 24 - 48 hours
Subjective/Interval History
-
Date of Service: April 30, 2025
Ongoing cough with productive phlegm but denies shortness of breath at rest. No chest pain. No dizziness.
No nausea vomiting.
Objective Data
-
Labs:
Laboratory Results
04/30/25
08:53
WBC 7.0
Hgb 14.5
Hct 43.8
Plt Count 179
Sodium 137
Potassium 3.2 L
Chloride 102
Carbon Dioxide 32 H
BUN 17
Creatinine 0.9
Glucose 78
Calcium 8.9
Vital Signs:
Vital Signs
Temp Pulse Resp BP Pulse Ox
98.3 F 62 18 152/70 93
04/30/25 11:02 04/30/25 11:02 04/30/25 11:02 04/30/25 11:02 04/30/25 11:02
I&O
04/29/25 04/30/25 05/01/25
06:59 06:59 06:59
Intake Total 1860 / 1860 960 / 960
Output Total 2074 2775 / 277
Balance -215 / -215 -1814 / -1814
Physical Exam
-
General: Comfortable
Respiratory: Non Labored Respirations and Decreased Breath Sounds (in general); Negative Wheezes or Accessory Resp Muscle Use
Cardiac: Regular Rhythm and S1/S2; Negative Tachycardic
GI: Soft
Neuro: AO x 3
Psych: Calm and Confused
Data Reviewed
-
Labs: Labs Reviewed by me
[2025-04-30 15:00] VITALS: BP 154/89
--- NOTE | 2025-04-30 16:33 | CM ---
network project manager reviewed patient's chart and patient with prior medical history of schizophrenia, patient has a long history of homelessness for many years, in the past patient was offered [facility] to obtain services, patient has refused to work with
[facility] street outreach. Patient had an altercation with [facility] and he is on the do not serve list with them, patient has used [facility] in past, patient refuses to go to [facility] saying he wants to stay in
[place], patient says he does not have a pharmacy. Patient also say he has no family in area.
Plan; To follow with progress and continue to offer longterm options at discharge.
[2025-04-30] MEDS: LOVENOX 40 MG SC (18:11)
[2025-04-30] MEDS: MELATONIN 5 MG PO (20:01)
[2025-04-30 22:15] VITALS: BP 153/84
--- NOTE | 2025-04-30 23:07 | CS.PSYCHR ---
Consult Summary - Psychiatry
-
pt seen this afternoon in consultation for determination of need for treatment for schizophrenia
75 yo man admitted for shortness of breath, now improving. noted by team to have elaborate bizarre delusions (for example that he was to his mother, that his mother was Ginger Nelson, that he knew Himmler, etc.) Pt states that he is here
for his breathing, that he has no place to live, that he stays in lot next to Neyda Xiao. Asked about his finances, acknowledges that he gets approx $900 per month in social security payments 'but that's all stolen by Ida French' When asked what
he's like us to do for him, says he wants to breathe easier and to get housing.
Pt denies previous contact with psychiatry, but lists meds that do no work for him including risperdal and haldol.
MSE: overweight man lying in hospital bed, malodorous wiht bags of belongings nearby. Denies all psychaitric symptoms, not suicidal, no gross cognitive deficits. Remarkably prolific delusions, animated when speaking about them. Continues to speak
even as I leave and after I have left his room.
Pt does not believe he has a mental illness, does not want to be treated with psychaitric medications.
No evidence for involuntary treatment
Impression: Paranoid schizophrenia, chronic
Rec: if he decides he would like treatment, souleigh consider starting on risperdal 1 mg bid, Unlikely that he will agree.No role for hospitalization at this point
--- NOTE | 2025-04-30 23:30 | PTCARENOTE ---
Patient reported he had heart pain for 10 minutes. He described the pain as 'it felt like something was stuck' The pain has since resolved. Performed EKG and sent to [facility]. He refused vitals to be checked and said, 'if I drop , oh well. I want to
get sleep.' 10pm vitals were 153/84 HR 65 Temp 97.9 RR 18 Pulse ox 92 on RA. Patient declined to put Oxygen on. WRAPPER COUNTER made aware.
[2025-05-01] MEDS: ROBITUSSIN DM 5 ML PO ×5 (02:24→19:52)
[2025-05-01 06:00] VITALS: BMI 27.0
[2025-05-01 07:10] VITALS: BP 175/110
[2025-05-01 09:04] LABS: Blood Urea Nitrogen 17 mg/dl (9-20); Calcium 9.1 mg/dl (8.4-10.2); Carbon Dioxide 31 mmol/L (22-30); Chloride 102 mmol/L (98-107); Estimated Creatinine Clearance 103 ml/min; Glucose 109 mg/dl (70-99); Potassium 4.8 mmol/L (3.5-5.1); Sodium 136 mmol/L (135-145); eGFR > 60.00
[2025-05-01] MEDS: NICODERM TRANSDERMAL 14 MG TRANSDERM (09:13)
[2025-05-01] MEDS: COZAAR 50 MG PO (09:13)
[2025-05-01] MEDS: DESENEX/MITRAZOL/ZEASORB 1 APPLIC TOPICAL ×2 (09:14→20:00)
[2025-05-01] MEDS: SENOKOT-S 1 TABLET PO (09:14)
[2025-05-01] MEDS: DELTASONE 30 MG PO (09:14)
[2025-05-01] MEDS: COREG 6.25 MG PO (09:14)
[2025-05-01] MEDS: AUGMENTIN 875 MG/125 MG 1 TABLET PO (09:14)
[2025-05-01] MEDS: LOW STRENGTH ASPIRIN 81 MG PO (09:14)
[2025-05-01] MEDS: LASIX 40 MG PO (09:14)
--- NOTE | 2025-05-01 09:24 | W.PN.CD ---
Addendum entered and electronically signed by Levi Hameed MD 05/01/25 10:29:
SGLT2 inhibitor affordable. Start dapagliflozin 10 mg daily.
Original Note:
Today's Communication / Plan
-
Add on troponin to a.m. labs for episode of chest pain
Increase carvedilol to 12.5 mg twice daily and trend BPs
Impression / Plan
-
75 y/o homeless man who presented to ER with worsening DUBON. Cardiology consulted for possible HFpEF.
Acute on chronic HFpEF
-TTE 04/30/2025: LVEF 50-55%, mild LVH, grade 3 DD, severe LAE, aortic sclerosis, mild MR
-BNP 2910, CXR suggestive of congestion on admission
-Continue p.o. Lasix 40 mg daily
-fluid /sodium restrictions
-continue ARB/BB
-Aldactone held due to concern for lack of follow-up
-SGLT2i likely cost prohibitive; will check with CM
Chest pain
-Had an episode of chest pain overnight. ECG nonischemic. Resolved on its own. Happened after taking meds so may be GERD.
-Add on troponin to a.m. labs
Hypertension
-BP still high.
-Increase carvedilol to 12.5 mg twice daily
-Continue losartan 50 mg daily
Nonischemic troponin elevation in the setting of CHF and acute COPD
-troponin 0.047, downtrended, EKG with non specific ST abn.
-con't low dose asa given smoker.
Tobacco abuse:
-encourage cessation.
Schizophrenia/depression/anxiety:
-per primary team
Subjecitve: Had an episode of chest pain overnight last night. Lasted 30 minutes and resolved on its own. He thinks it was related to taking his pills. Reviewed ECG from that time which was nonischemic.
Physical Exam
Vital Signs/Labs
Vital Signs
Temp Pulse Resp BP Pulse Ox
97.5 F 82 20 175/110 96
05/01/25 07:10 05/01/25 07:10 05/01/25 07:10 05/01/25 07:10 05/01/25 07:10
04/30/25 05/01/25 05/02/25
06:59 06:59 06:59
Actual Weight 199 lb 4 oz
04/30/25 08:53
05/01/25 08:41
Magnesium Cancelled 04/28/25 06:00
Triglycerides Cancelled 04/28/25 06:00
LDL Cholesterol, Calc Cancelled 04/28/25 06:00
VLDL Cholesterol, Calc Cancelled 04/28/25 06:00
HDL Cholesterol Cancelled 04/28/25 06:00
04/27/25
21:43
Vhb-T-Xuovfpkagcl Pept 2910
LAB Results
04/28/25
08:27
Troponin I 0.035 H*
Physical Exam
Constitutional: No acute distress and Comfortable
Cardiovascular: Rhythm & rate is regular, Pedal edema is absent, S1S2 is normal and Murmur/rub/gallop absent
Respiratory: Respiratory effort normal and Lungs clear to auscul.
Data Reviewed
-
Date of Service: May 01, 2025
Medical Decision Making: Reviewed Test Results, Test Interpretation and Review of Case with other Provider
EKG: Tracing Personally Visualized and interpreted
Echo: Report Reviewed by me
Labs: Labs Reviewed by me
[2025-05-01 10:20] VITALS: BP 155/96; PULSE 78
[2025-05-01 10:41] VITALS: BP 157/88
[2025-05-01 10:41] LABS: Troponin I 0.020 ng/ml
--- NOTE | 2025-05-01 10:57 | CM ---
Addendum entered by Kathy Balbuena 05/01/25 11:07:
Per physical therapy patient is currently ambulating 70 feet supervision with cane and does not need skilled placement.
Original Note:
Chart reviewed and patient reports that he plans on staying in [place] after discharge, case sealer offered patient [facility] closest intermediate to hospital and patient declined, case sealer reached out to patient's insurance to
check on cost of medications, Farxiga 10mg QD and Jardiance 10mg QD and cost for both medications is $4.80 per month, case sealer asked patient for pharmacy and patient states he will not provided a pharmacy and will not take any medications,
pricing of medications provided to cardiology, Patient was provided with information on [facility] out [facility] program, and [email or web address].
Plan; Patient has been offered [facility] to stay after discharge, patient declined intermediate.
--- NOTE | 2025-05-01 11:09 | W.PN.HOSP.TC ---
Today's Communication/Plan
-
DC planning
Assessment / Plan
Assessment / Plan
Mr. Vee is a 75-year-old male with a medical history of schizophrenia, memory impairment, nicotine abuse, and ambulatory dysfunction due to bilateral knee pain who presented with cough and shortness of breath. He reports being homeless and has
recently been sleeping behind a [employer]. He reports not being on any outpatient medications since the . He is a current smoker. He was afebrile and moderately hypertensive in the ED. He was saturating in the low to mid 90s on room air.
Labs were significant for no leukocytosis and a mild hyponatremia of 132, mildly elevated troponin of 0.047 which downtrended to 0.035, and a significant elevated BNP of 2910. Respiratory panel was negative for COVID or influenza. Chest imaging
did show pulmonary edema. He was given a dose of IV Lasix and admitted for further evaluation and management of suspected new onset CHF.
Acute CHF with preserved EF
- New onset
- Echocardiogram EF of 50 to 55%. No wall motion abnormality. Grade 3 diastolic dysfunction. Severe LA enlargement. Mild MR noted.
- Continue diuresis with Lasix
- Started beta-blockade with carvedilol 6.25 mg p.o. twice daily
- Losartan started this admission, increasing dose to 50 mg daily
- SGLT2 inhibitors affordable-started on Farxiga 10 mg daily
- Cardiology following, guidance appreciated
- Continue low-dose aspirin
- Monitor I's and O's and daily weights
- Episode of chest pain. Troponins negative. No more chest pain today. Continue to follow for any recurrence.
COPD:
- Chronic half a pack per day smoker, encouraged cessation, nicotine patch provided
- No active bronchospasm
- Not on any scheduled inhalers as outpatient, does not follow-up with a director of loss prevention
- DuoNebs ordered as needed
- Will give short course of oral steroids, azithromycin-start tapering steroids
- Supplemental oxygen if needed to maintain pulse ox between 88 and 92%-on room air
Hyponatremia:
- Mild, likely hypervolemic in the setting of new onset CHF
- Now resolved, will monitor
Hypokalemia-normalized
Schizophrenia:
- Chronic, reports not being on any medication since the
- Outpatient follow-up
- Patient homeless.
- Appreciate psychiatry input-patient with chronic paranoid schizophrenia. No indication for hospitalization. Recommends Risperdal twice daily with the patient is interested.
DVT prophylaxis: Lovenox
CODE STATUS: Full code
Dispo: Case management involved for assistance considering homelessness and likely need for new medications at discharge
Anticipated Discharge: Within 24 hours
Subjective/Interval History
-
Date of Service: May 01, 2025
Mentions to me about episode of chest pain last night lasting for 1 hour. Left-sided chest pain localized. No radiation to the neck or to the arm. No swelling. No dizziness.
No recurrence since then.
Denies any shortness of breath. His breathing is improved since admission.
No palpitations.
No fever or chills.
No nausea vomiting.
Objective Data
-
Labs:
Laboratory Results
05/01/25
08:41
Sodium 136
Potassium 4.8 D
Chloride 102
Carbon Dioxide 31 H
BUN 17
Creatinine 0.7
Glucose 109 H
Calcium 9.1
Vital Signs:
Vital Signs
Temp Pulse Resp BP Pulse Ox
97.5 F 82 20 175/110 96
05/01/25 07:10 05/01/25 07:10 05/01/25 07:10 05/01/25 07:10 05/01/25 07:10
I&O
04/30/25 05/01/25 05/02/25
06:59 06:59 06:59
Intake Total 960 / 960 960 / 960
Output Total 2775 / 2775 875 / 875
Balance -1814 / -1814
Physical Exam
-
General: Comfortable
Respiratory: Clear to Auscultation and Non Labored Respirations; Negative Accessory Resp Muscle Use
Cardiac: Regular Rhythm and S1/S2; Negative Tachycardic
GI: Soft and Nontender
Neuro: AO x 3
Psych: Calm
Data Reviewed
-
Labs: Labs Reviewed by me
--- NOTE | 2025-05-01 11:31 | PTCARENOTE ---
Pt refusing extra dose of coreg and dose of farxiga. States he is here for respiratory issues and a cough, not cardiac. Dr. Hameed notified.
[2025-05-01] MEDS: FARXIGA PO (11:36)
[2025-05-01 15:00] VITALS: BP 154/84
[2025-05-01] MEDS: LOVENOX SC (17:28)
[2025-05-01] MEDS: TYLENOL 650 MG PO (19:57)
[2025-05-01] MEDS: AUGMENTIN 875 MG/125 MG PO (20:09)
[2025-05-01] MEDS: SENOKOT-S PO (20:09)
[2025-05-01] MEDS: COREG PO (20:09)
[2025-05-01] MEDS: MELATONIN PO (22:00)
[2025-05-01 23:20] VITALS: BP 149/92
[2025-05-02 00:18] VITALS: BP 162/97
[2025-05-02] MEDS: TYLENOL 325 MG PO (01:55)
[2025-05-02] MEDS: TYLENOL 650 MG PO ×3 (01:57→22:00)
--- NOTE | 2025-05-02 05:22 | W.PN.UPDATE ---
Update Note
Progress Note Update
RN reports patient c/o chest pain, relieved with Tylenol at 8PM
C/o chest pain again at [place]. patient seen and evaluated
reports pain at the left lateral chest under arm pit, non radiating.
reports his chest pain is only relieved with Nitro tabs. Denies shortness of breath, nausea or dizziness.
Also states he prefers to sleep on left side. no rash , redness or swelling noted.
lungs diminished,
VS: 162/97 HR 72 RR 18 T 97.4 97% RA. Patient had refused night Coreg
EKG results noted, will do labs. xray
Tylenol 1000mg POx1
chest pain non ischemic likely musculoskeletal?
CHF?
--- NOTE | 2025-05-02 05:45 | PTCARENOTE ---
Patient had 2 episodes of 'heart pain'; first was at 8pm and second around midnight. [facility] T[facility] made aware of both instances. EKG done at [place]. Vitals obtained 162/97, HR 72, RR 18, T 97.4 Pulse ox 97% on RA. Lungs are diminished, more so on the R. VENET[facility] BL[facility] TAPE CUTTER came
to assess patient. Patient agreeable to Tylenol. VENETIAN BLIND TAPE CUTTER ordered additional 325mg on Tylenol to be given with PRN 650mg of Tylenol. Patient observed sleeping upon follow up. VENETIAN BLIND TAPE CUTTER ordered labs and CXR.
Pt refused BP medication and abx last night. Says the BP meds are causing heart problems and that he didn't have heart problems prior to admission. Refusing abx bc his father invented PCN and he only wants straight PCN.
[2025-05-02 05:51] LABS: Hematocrit 43.4 % (39.0-52.0); Hemoglobin 14.4 g/dL (13.0-18.0); Mean Corp Hgb Conc. 33.2 g/dL (33.0-37.0); Mean Corpuscular Volume 98.2 fL (80.0-94.0); Platelet Count 192 10^3/uL (130-400); Red Cell Dist. Width 11.8 % (11.5-14.5)
[2025-05-02 06:00] VITALS: BMI 26.6
[2025-05-02 06:16] LABS: Blood Urea Nitrogen 19 mg/dl (9-20); Calcium 8.7 mg/dl (8.4-10.2); Carbon Dioxide 32 mmol/L (22-30); Chloride 102 mmol/L (98-107); Estimated Creatinine Clearance 80 ml/min; Glucose 99 mg/dl (70-99); Magnesium 2.2 mg/dl (1.6-2.3); Potassium 4.8 mmol/L (3.5-5.1); Sodium 138 mmol/L (135-145); eGFR > 60.00
[2025-05-02 06:29] LABS: Troponin I 0.016 ng/ml
[2025-05-02 08:30] VITALS: BP 141/74
[2025-05-02] MEDS: COREG 12.5 MG PO (08:34)
[2025-05-02] MEDS: FARXIGA 10 MG PO (08:34)
[2025-05-02] MEDS: DELTASONE 30 MG PO (08:34)
[2025-05-02] MEDS: NICODERM TRANSDERMAL 14 MG TRANSDERM (08:35)
[2025-05-02] MEDS: ROBITUSSIN DM 5 ML PO ×3 (08:35→22:00)
[2025-05-02] MEDS: LASIX 40 MG PO (08:35)
[2025-05-02] MEDS: LOW STRENGTH ASPIRIN 81 MG PO (08:35)
[2025-05-02] MEDS: COZAAR 50 MG PO (08:38)
[2025-05-02] MEDS: DESENEX/MITRAZOL/ZEASORB 1 APPLIC TOPICAL (08:39)
[2025-05-02] MEDS: SENOKOT-S 1 TABLET PO (08:40)
[2025-05-02] MEDS: AUGMENTIN 875 MG/125 MG PO ×2 (08:40→21:43)
--- NOTE | 2025-05-02 08:49 | W.PN.CD ---
Today's Communication / Plan
-
BP still high. But he is refusing meds. I asked him to take his meds to protect his heart. He will try taking meds.
Impression / Plan
-
75 y/o homeless man who presented to ER with worsening DUBON. Cardiology consulted for possible HFpEF.
Acute on chronic HFpEF: improved s/p IV lasix
-TTE 04/30/2025: LVEF 50-55%, mild LVH, grade 3 DD, severe LAE, aortic sclerosis, mild MR
-Continue p.o. Lasix 40 mg daily
-Aldactone held due to concern for lack of follow-up
-started farxiga 10mg daily
Chest pain
-point tenderness to left lateral chest: suspect MSK in etiology
-EKG without ischemic changes this AM, and trop within normal limits
Hypertension
-BP still high. But he is refusing meds. I asked him to take his meds to protect his heart. He will try taking meds.
-continue carvedilol to 12.5 mg twice daily
-Continue losartan 50 mg daily
Nonischemic troponin elevation in the setting of CHF and acute COPD
-troponin 0.047, downtrended, EKG with non specific ST abn.
-con't low dose asa given smoker.
Tobacco abuse:
-encourage cessation.
Schizophrenia/depression/anxiety:
-per primary team
Physical Exam
Vital Signs/Labs
Vital Signs
Temp Pulse Resp BP Pulse Ox
97.4 F 72 18 162/97 97
05/02/25 00:18 05/02/25 00:18 05/02/25 00:18 05/02/25 00:18 05/02/25 00:18
05/01/25 05/02/25 05/03/25
06:59 06:59 06:59
Actual Weight 90.378 kg 88.932 kg
05/02/25 05:41
05/02/25 05:41
Magnesium 2.2 mg/dl (1.6-2.3) 05/02/25 05:41
Triglycerides Cancelled 04/28/25 06:00
LDL Cholesterol, Calc Cancelled 04/28/25 06:00
VLDL Cholesterol, Calc Cancelled 04/28/25 06:00
HDL Cholesterol Cancelled 04/28/25 06:00
04/27/25
21:43
Iwg-Z-Ehwqpzdnlsu Pept 2910
LAB Results
05/01/25 05/02/25
09:51 05:41
Troponin I 0.020 0.016
Physical Exam
Constitutional: No acute distress and Comfortable
EENT: Moist mucous membranes
Cardiovascular: Rhythm & rate is regular, Pedal edema is absent, JVD pressure is normal and Systolic murmur absent
Respiratory: Respiratory effort normal and Lungs clear to auscul.
Neuro/Psych: AO x 3
Data Reviewed
-
Date of Service: May 02, 2025
Labs: Labs Reviewed by me
[2025-05-02] MEDS: AUGMENTIN 875 MG/125 MG 1 TABLET PO (11:06)
--- NOTE | 2025-05-02 12:01 | W.PN.HOSP.TC ---
Addendum entered and electronically signed by Balbir Manule MD 05/02/25 12:32:
Cardiology-okay from discharge from the standpoint.
Original Note:
Today's Communication/Plan
-
dc
Assessment / Plan
Assessment / Plan
Mr. Vee is a 75-year-old male with a medical history of schizophrenia, memory impairment, nicotine abuse, and ambulatory dysfunction due to bilateral knee pain who presented with cough and shortness of breath. He reports being homeless and has
recently been sleeping behind a [employer]. He reports not being on any outpatient medications since the 1970s. He is a current smoker. He was afebrile and moderately hypertensive in the ED. He was saturating in the low to mid 90s on room air.
Labs were significant for no leukocytosis and a mild hyponatremia of 132, mildly elevated troponin of 0.047 which downtrended to 0.035, and a significant elevated BNP of 2910. Respiratory panel was negative for COVID or influenza. Chest imaging
did show pulmonary edema. He was given a dose of IV Lasix and admitted for further evaluation and management of suspected new onset CHF.
Acute CHF with preserved EF
- New onset
- Echocardiogram EF of 50 to 55%. No wall motion abnormality. Grade 3 diastolic dysfunction. Severe LA enlargement. Mild MR noted.
- Continue diuresis with Lasix
- Started beta-blockade with carvedilol 6.25 mg p.o. twice daily
- Losartan started this admission, increasing dose to 50 mg daily
- SGLT2 inhibitors affordable-started on Farxiga 10 mg daily
- Cardiology following, guidance appreciated
- Continue low-dose aspirin
- Monitor I's and O's and daily weights
- Episode of chest pain. Troponins negative. None again this morning. Point tenderness in left lateral mid chest . suspect MS pain.
Patient told about his heart failure condition and stressed about importance of the meds and follow up with cardiology.
COPD:
- Chronic half a pack per day smoker, encouraged cessation, nicotine patch provided
- Not on any scheduled inhalers as outpatient, does not follow-up with a casing material weigher
- DuoNebs ordered as needed
- Will give short course of oral steroids,abx day 4/5 -start tapering steroids
- Stable on room air
Hyponatremia:
- Mild, likely hypervolemic in the setting of new onset CHF
- Now resolved
Hypokalemia-normalized
Schizophrenia:
- Chronic, reports not being on any medication since the
- Outpatient follow-up
- Patient homeless.
- Appreciate psychiatry input-patient with chronic paranoid schizophrenia. No indication for hospitalization. Recommends Risperdal twice daily with the patient is interested.
DVT prophylaxis: Lovenox
CODE STATUS: Full code
Dispo: Case management involved for assistance considering homelessness and likely need for new medications at discharge
Medically stable for DC
Anticipated Discharge: Today
Subjective/Interval History
-
Date of Service: May 02, 2025
No chest pain today.
Denies shortness of breath. No palpitation. No nausea vomiting. No lightheadedness.
' I dont think anything is wrong with my heart ' ' I dont know if i am going to take the medication for heart and follow up with cardiology'
' I am here for cough , give me an IV pencillin and i should be good'
' I dont know if these medications are giving chest pains?'
Objective Data
-
Labs:
Laboratory Results
05/02/25
05:41
WBC 6.7
Hgb 14.4
Hct 43.4
Plt Count 192
Sodium 138
Potassium 4.8
Chloride 102
Carbon Dioxide 32 H
BUN 19
Creatinine 0.9
Glucose 99
Calcium 8.7
Vital Signs:
Vital Signs
Temp Pulse Resp BP Pulse Ox
97.3 F 72 22 141/74 95
05/02/25 08:30 05/02/25 08:30 05/02/25 08:30 05/02/25 08:30 05/02/25 08:30
I&O
05/01/25 05/02/25 05/03/25
06:59 06:59 06:59
Intake Total 960 / 960 1475 / 1475
Output Total 875 / 875 1275 / 1275
Balance 85 / 85 200 / 200
Physical Exam
-
General: Comfortable
Respiratory: Non Labored Respirations; Negative Wheezes or Accessory Resp Muscle Use
Cardiac: Regular Rhythm and S1/S2; Negative JVD or Tachycardic
GI: Soft
Musculoskeletal: No Edema
Neuro: AO x 3
Psych: Calm; Negative Agitated
Data Reviewed
-
Labs: Labs Reviewed by me
--- NOTE | 2025-05-02 13:50 | CM ---
Addendum entered by Kathy Balbuena 05/02/25 14:10:
Call placed to [facility], spoke with [facility] and they cannot help patient again as they have been helping patient for years, [facility] will not assist.
[facility] information and [facility] information provided to patient.
Original Note:
integrated campaign manager spoke with patient's physician today, and plan is for discharge, patient was offered [facility] jail but patient declined jail, nurse case manager reached out to [facility] and spoke with Nelda and patient is well known to
them, the have tried multiple times to assist with housing but patient does not follow up with them, nurse case manager reached out to [facility], and [facility] and they have helped patient so many times in past. Plan is to offer [facility]
jail to patient again.
Plan Discharge to jail.
[2025-05-02 15:00] VITALS: BP 148/92
[2025-05-02] MEDS: LOVENOX SC (17:11)
[2025-05-02] MEDS: SENOKOT-S PO (21:43)
[2025-05-02] MEDS: COREG PO (21:43)
[2025-05-02] MEDS: MELATONIN PO (21:43)
[2025-05-02] MEDS: DESENEX/MITRAZOL/ZEASORB TOPICAL (21:43)
[2025-05-02 23:42] VITALS: BP 147/81
[2025-05-03] MEDS: ROBITUSSIN DM 5 ML PO (03:10)
[2025-05-03 06:00] VITALS: BMI 26.6
[2025-05-03 07:47] VITALS: BP 163/85
[2025-05-03] MEDS: DESENEX/MITRAZOL/ZEASORB TOPICAL (08:38)
[2025-05-03] MEDS: TYLENOL 650 MG PO (08:39)
[2025-05-03] MEDS: NICODERM TRANSDERMAL 14 MG TRANSDERM (08:40)
[2025-05-03] MEDS: AUGMENTIN 875 MG/125 MG PO (09:49)
[2025-05-03] MEDS: COZAAR PO (09:50)
[2025-05-03] MEDS: DELTASONE PO (09:50)
[2025-05-03] MEDS: FARXIGA PO (09:50)
[2025-05-03] MEDS: LASIX PO (09:50)
[2025-05-03] MEDS: COREG PO (09:50)
[2025-05-03] MEDS: LOW STRENGTH ASPIRIN PO (09:51)
[2025-05-03] MEDS: SENOKOT-S PO (09:51)
--- NOTE | 2025-05-03 11:54 | CM ---
Patient homeless-Patient refusing [facility] information given to patient
per nursing refusing medications
patient discharged today
refused to sign IMM
Schedule given for [facility], $3.00 given to patient
plan: discharge today, [facility] transport
--- NOTE | 2025-05-03 12:11 | PTCARENOTE ---
Patient ambulating with steady gait, restless, moving from bed to chair and chair to bed frequently. Able to make his needs known. Refused all am meds except for nicotine patch and requested 2 tylenol for a headache. Refuses to drink our water,
says it is 'contaminated' . functional manager arranged transport for patient at 2pm via [facility]. Funds provided. Denies any pain or discomfort at present.
--- NOTE | 2025-05-03 13:15 | W.DCSUMMARY ---
Discharge Summary
Discharge Data
Date of Admission: 04/28/25
Date of Discharge: 05/03/25
-
Pending Results: No
Hospital Course
Primary diagnosis:
Acute on chronic heart failure with preserved EF
COPD with Exacerbation
Current smoker
Secondary diagnosis:
Essential hypertension
Chronic paranoid schizophrenia
Homeless
Hospital course:
75-year-old gentleman who is reportedly homeless came in with progressive shortness of breath with exertion for some time which got worse last week with cough as well. He felt like he was wheezing.
He has chronic paranoid schizophrenia and has not been taking any medications. He is a frequent visitor to crisis center. He also is not taking any medications . He is current smoker.
Admission his blood pressure was elevated. Chest x-ray showed cardiomegaly with increased pulmonary vascular prominence. His BNP was 2900. Clinical concern was heart failure. Echo came back with EF of 50 to 55% and no wall motion abnormality.
Mild LVH. Grade 3 diastolic dysfunction was noted. Mild MR otherwise no significant valvular heart disease was noted.
Clinical concern was acute heart failure with preserved EF. Was started on diuretics. Beta-ivania was started. ARB was started. Aldactone was held due to lack concern for lack of follow-up. SGLT2 was not prohibitive so it was started as well.
Troponins were indeterminate suggestive of nonischemic myocardial injury.
There was also concern of mild COPD exacerbation and was given antibiotics and oral prednisone which was tapered the time of discharge. Restarted to quit smoking.
Was also seen by psychiatrist who noted him to have chronic paranoid schizophrenia and patient is not cooperative for any treatments but no indication for hospitalization.
Patient has demonstrated here lack of insight into his medical condition and was refusing medication intermittently. He was also seen by school social worker department and was offered multiple options for places to stay but he refused.
Today was alert and oriented. Denied any shortness of breath. He did not think he had any issues with the heart nor is he going to take any medications for the heart. He also plans not to quit smoking.
Afebrile, pulse 70. Blood pressure 163/85. Chest was clear without any wheezes or crackles. Abdomen is soft.
Patient is on optimal treatment for heart failure and seems compensated. Also not in any COPD flare at the current time. No active bronchospasm.
Deemed medically stable for discharge.
Patient advised to try and select an option offered by case management for places to stay. Advised to quit smoking. Also brought to his notice about the small opacity in the left infrahilar region advised low-dose CT chest as an outpatient.
Consultants on board:
Cardiology-Wilberto Davis
Psychiatry-Tyler Khan
Discharge Plan
-
Patient Disposition: Home (Routine Discharge)
Discharge Diagnosis/Procedures: Echo preserved EF; COPD with flare; hyponatremia; chronic paranoid schizophrenia; left infrahilar small focal opacity; current smoker
Condition: Fair
Diet: 2 Gram Sodium and Restrict fluids to 64 oz
Activity: As tolerated
Driving Restrictions: As prior to admission
Blood Work: BMP in one week -arrange through your PCP
Others Tests: Low-dose chest CT in 4 weeks time-to follow-up on the left infrahilar small opacity-stop smoking and follow with PCP to arrange this.
Instructions: *PCP/Other Sight Effects Specialist Heart Failure Instructions
Referrals:
Devi Guillermo CRNP [Specified Professional Personl, Cardiology] - 05/29/25 8:40 am
NONE,* [Family Provider, Internal Medicine] - in less than 1 week
Referral Note: Follow-up with your PCP
Prescriptions:
New
carvedilol 12.5 mg Tablet
12.5 mg PO BID Qty: 60 0RF
losartan 50 mg Tablet
50 mg PO DAILY Qty: 30 0RF
prednisone 10 mg tablet
10 mg PO DIRECTED Qty: 6 0RF
Rx Instructions:
20mg daily for 2 days and then 10mg daily for 2 days and stop
dapagliflozin propanediol 10 mg Tablet
10 mg PO DAILY Qty: 30 0RF
furosemide 40 mg Tablet
40 mg PO DAILY Qty: 30 0RF
nicotine 14 mg/24 hr Patch 24 Hour
14 mg transdermal DAILY Qty: 7 0RF
dextromethorphan-guaifenesin 10-100 mg/5 mL Syrup
5 ml PO Q4HPRN PRN (Reason: cough) Qty: 237 0RF
aspirin 81 mg Tablet,Chewable
81 mg PO DAILY Qty: 30 0RF
albuterol sulfate [Ventolin HFA] 90 mcg/actuation HFA aerosol inhaler
2 puff inhalation Q6H PRN (Reason: shortness of breath or wheezing) Qty: 6.7 0RF
Discharge Orders:
Discharge Patient (As Directed); Ordered 05/03/25
Ordered By: Balbir Manuel
Discharge Date and Time
Print Language: IRISH
--- NOTE | 2025-05-03 13:16 | PTCARENOTE ---
Patient requested a wheelchair for discharge, refused to wait for its arrival. Ambulated with steady gait off of the unit despite instruction from staff.
== END 2025-05-03 13:18 | disposition home or self-care (01) | DRG 291 ==
LOC: 4 WEST ACU 00:19
PROVIDERS: Emergency Medicine; Internal Medicine; Nurse Practitioner; Nurse Practitioner Gerontology; ADMITTING PHYSICIAN Internal Medicine; ATTENDING PHYSICIAN Internal Medicine; CONSULT PHYSICIAN Internal Medicine Cardiovascular Disease; CONSULT PHYSICIAN Psychiatry & Neurology Psychiatry; EMERGENCY PHYSICIAN Student in an Organized Health Care Education/Training Program
DX: I11.0 Hypertensive heart disease with heart failure (principal); I50.33 Acute on chronic diastolic (congestive) heart failure; F20.0 Paranoid schizophrenia; J44.1 Chronic obstructive pulmonary disease with (acute) exacerbation; Z59.00 Homelessness unspecified; E87.1 Hypo-osmolality and hyponatremia; F17.210 Nicotine dependence, cigarettes, uncomplicated; F32.A Depression, unspecified; R26.2 Difficulty in walking, not elsewhere classified; E87.6 Hypokalemia; Z11.52 Encounter for screening for COVID-19
CPT/HCPCS: 71045; 71046; 80048; 80053; 83735; 83880; 84484; 85025; 85027; 87070; 87205; 87502; 87811; 93005; 93306; 94640; 94760; 96374; 97116; 97162; 97166; 97530; 99285; 99406; Q9950

== ENCOUNTER 2025-05-15 01:17 | Observation (INO) | payer MEDICARE, SELFPAY ==
[2025-05-14 20:20] VITALS: BMI 27.9
[2025-05-14 20:22] VITALS: BP 146/79
[2025-05-14 20:46] LABS: Hematocrit 44.0 % (39.0-52.0); Hemoglobin 14.4 g/dL (13.0-18.0); Mean Corp Hgb Conc. 32.7 g/dL (33.0-37.0); Mean Corpuscular Volume 100.5 fL (80.0-94.0); Nucleated Red Blood Cells % 0 % (-); Platelet Count 189 10^3/uL (130-400); Red Cell Dist. Width 12.8 % (11.5-14.5)
[2025-05-14 21:10] LABS: ALT (SGPT) 26 U/L (0-50); AST (SGOT) 27 U/L (17-59); Albumin 4.0 g/dl (3.5-5.0); Alkaline Phosphatase 48 U/L (38-126); Blood Urea Nitrogen 18 mg/dl (9-20); Calcium 8.5 mg/dl (8.4-10.2); Carbon Dioxide 28 mmol/L (22-30); Chloride 110 mmol/L (98-107); Glucose 76 mg/dl (70-99); Potassium 4.0 mmol/L (3.5-5.1); Sodium 143 mmol/L (135-145); Total Protein 6.8 g/dl (6.3-8.2); eGFR > 60.00
[2025-05-14 21:26] LABS: Troponin I 0.036 ng/ml
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
[2025-05-14 23:16] VITALS: BP 144/92
[2025-05-14 23:53] LABS: Troponin I 0.041 ng/ml
[2025-05-15] VITALS (8 sets, daily range): BP systolic 132–174; BP diastolic 72–105; BMI 27.1; BMI 26.8
--- NOTE | 2025-05-15 00:53 | HPS.HSE ---
Family Physician
-
Family Physician: * NONE
Chief Complaint
-
Shortness of breath
History of Present Illness
This is a 75-year-old male with past medical history significant for tobacco dependence, schizophrenia, homelessness, COPD not on home O2, CHF who presents to the emergency department for shortness of breath.
Patient recently admitted for similar symptoms. He was diagnosed with CHF with preserved EF. Echo showed cho came back with EF of 50 to 55% and no wall motion abnormality. Mild LVH. Grade 3 diastolic dysfunction was noted. Mild MR otherwise no
significant valvular heart disease was noted. Was started on diuretics. Beta-ivania was started. ARB was started. Patient reports that he has not been compliant with the medications. He has noted some increased lower extremity swelling. He
does not weigh himself. He reports he has nowhere to go at this time and the cold is making his breathing worse.
In the emergency department he was afebrile, blood pressure was 146/79 with a pulse of 72 and satting 92% on room air. ECG shows a normal sinus rhythm at a rate of [address] or T wave changes. His troponin was elevated at 0.036-0.041.
BNP is elevated at 3100. CBC is unremarkable. Electrolytes BUN/creatinine are all in the normal range.
Medical History
Past Medical History
Past Medical History: Reports Other
Additional Past Medical History:
schizophrenia
anxiety
depression
nicotine abuse
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
memory impairment
[place]
Past Surgical History: Reports Other
Additional Past Surgical History:
Left hip surgery
CTR right hand
Social History
Tobacco: Smoker (Varies based on patient's income he states)
Alcohol: None
Drug: None
Personal: Single
Living: Homeless
Employment: Retired
Family History
Family History: Not pertinent
Allergies / Home Medications
Allergies reflects when Allergies were last updated in [employer].
Home Medications with original date entered in [employer]
Allergy/Medication List:
Allergies
Allergy/AdvReac Type Severity Reaction Status Date / Time
No Known Allergies Allergy Verified 04/27/25 20:05
Home Medications
No Meds [No Current Medications] 04/09/25
Review of Systems
-
Constitutional: Reports No Symptoms
EENT: Reports No Symptoms
Respiratory: Reports No Symptoms
Cardiac: Reports No Symptoms
Abdomen/GI: Reports Nausea and Vomiting
: Reports No Symptoms
Musculoskeletal: Reports No Symptoms
Skin: Reports No Symptoms
Neurological: Reports Weakness
Endocrine: Reports No Symptoms
Hematologic/Lymphatic: Reports No Symptoms
Psych: Reports No Symptoms
Physical Exam
Vital Signs
Vital Signs
Temp Pulse Resp BP Pulse Ox
97.6 F 72 19 146/79 92
05/14/25 20:22 05/14/25 20:22 05/14/25 20:22 05/14/25 20:22 05/14/25 23:07
Physical Exam
General: Conversant; No Pain, Fever or Chills
HEENT: NormoCephalic, Anicteric, Moist mucous membranes, PERRLA, Alicia Conjunctivae and No Ptosis
Respiratory: Clear, Rhonchi and Crackles
Cardiac: S1/S2 and Regular Rhythm; No Murmur, Rub, Gallop or Peripheral Edema
Breast: Deferred by me
GI: Soft, Non Tender, Non Distended, Normal Bowel Sounds and No Hepatosplenomegaly
Rectal: Deferred by Provider
Genito-urinary: Deferred by me
Musculoskeletal: No Clubbing, No Cyanosis, Edema, Left Lower Extremity and Edema, Right Lower Extremity
Skin: Warm and Dry; No Rash or Jaundice
Neuro: AO x 3, No Motor Deficits, Cranial Nerves Intact and No Sensory Deficits; No Slurred Speech, Facial Droop, Tremors or Sedated
Psych: Calm
Laboratory Results
-
05/14/25 20:39
05/14/25 20:39
Laboratory Results
Total Bilirubin 0.4 mg/dl (0.2-1.3) 05/14/25 20:39
AST 27 U/L (17-59) 05/14/25 20:39
ALT 26 U/L (0-50) 05/14/25 20:39
Alkaline Phosphatase 48 U/L (38-126) 05/14/25 20:39
Troponin I 0.041 ng/ml H* 05/14/25 23:19
Data Reviewed
-
Diagnostic Radiology: Image Personally Visualized and interpreted
Medical Tests (Nuc Med, Echo, EKG etc): Image Personally Visualized and interpreted
Lab Data: Labs Reviewed by me
Old Records: Reviewed
Impression/Plan
-
IMPRESSION:
Is a 75-year-old who was recently diagnosed with CHF with preserved EF and started on diuretics and GDMT however patient has not been taking his medications. He comes in with shortness of breath and found to have increased lower extremity edema and
some crackles on exam and mild hypoxia. Chest x-ray shows some increased interstitial markings consistent with mild pulmonary edema. Patient is also homeless and reports that cold weather this made his shortness of breath worse. He has no
coughing wheezes and no symptoms of acute infection. He does not appear to be in COPD exacerbation.
Plan
Shortness of breath�CHF exacerbation,
- Admit to telemetry
- Start Lasix 40 mg IV daily
- Daily weights and ins and outs
- Echocardiogram in a.m.
- Continue losartan 50 mg and carvedilol 12.5 mg twice daily
- Continue Farxiga
Elevated troponin -s similar elevation as prior in the setting of is mild CHF exacerbation. No chest pain. No ischemia on EKG
- Continue aspirin 81 mg daily
- Trend troponins for now
- Will hold off on cardiology consult unless rising further
Tobacco dependence/COPD -
- DuoNebs prn
Schizophrenia -no medication
- Monitor for now, as needed diazepam as needed for agitation
Homelessness
- Case management
DVT prophylaxis�Lovenox subcu
CODE STATUS�full code
[2025-05-15] MEDS: LASIX 40 MG IV ×2 (01:26→07:55)
[2025-05-15 06:59] LABS: Troponin I 0.034 ng/ml
[2025-05-15 07:05] LABS: Blood Urea Nitrogen 17 mg/dl (9-20); Calcium 8.8 mg/dl (8.4-10.2); Carbon Dioxide 31 mmol/L (22-30); Chloride 105 mmol/L (98-107); Estimated Creatinine Clearance 90 ml/min; Glucose 122 mg/dl (70-99); Magnesium 2.0 mg/dl (1.6-2.3); Potassium 4.6 mmol/L (3.5-5.1); Sodium 137 mmol/L (135-145); eGFR > 60.00
[2025-05-15] MEDS: NICODERM TRANSDERMAL 14 MG TRANSDERM (07:55)
[2025-05-15] MEDS: ROBITUSSIN DM 5 ML PO (09:32)
[2025-05-15] MEDS: LOW STRENGTH ASPIRIN 81 MG PO (09:34)
[2025-05-15] MEDS: COREG 12.5 MG PO (11:31)
[2025-05-15] MEDS: COZAAR 50 MG PO (11:31)
[2025-05-15] MEDS: FARXIGA 10 MG PO (11:32)
--- NOTE | 2025-05-15 12:05 | W.PN.UPDATE ---
Update Note
Progress Note Update
Seen and admitted by this am for CHF decompensation.
Breathing better per pt this am.No CP. Few BL basal crackles today no wheeze. In SR.
cw current tx and follow progress.
Still homeless and not accepting the options offered by the CM .
Wants to be on regular diet.
--- NOTE | 2025-05-15 16:04 | CM ---
Addendum entered by Kathy Balbuena 05/15/25 16:51:
Patient is independent with adl's and ambulation, no dme, multiple attempts to find [facility] for patient however patient refuses to work with outreach [facility] program and patient refuses to go to [facility].
Original Note:
event operations manager reviewed patient's chart and patient made aware that he was admitted under observation, patient is upset, he wants to stay in [place] and possibly go to a nursing facility, would like to go to [facility], patient does not have
any skilled needs, also patient only wants to stay at [facility] at night and during the day patient wants to wander around [place]. Patient was made aware of [facility] and [facility], and [facility].
Plan; [facility].
[2025-05-15] MEDS: COREG PO ×2 (20:59→21:25)
[2025-05-15] MEDS: FLUSH (NSS) 1 FLUSH IV (21:00)
[2025-05-16 03:28] VITALS: BP 149/91
--- NOTE | 2025-05-16 05:12 | PTCARENOTE ---
Patient c/o SOB intermittently overnight. Sat 96% room air. O2 2lpm. Patient removes. Resp in for prn imhaler.
[2025-05-16 06:00] VITALS: BMI 26.6
[2025-05-16] MEDS: ROBITUSSIN DM 5 ML PO (06:11)
[2025-05-16 08:16] VITALS: BP 160/84
[2025-05-16] MEDS: TYLENOL 650 MG PO (08:17)
[2025-05-16] MEDS: NICODERM TRANSDERMAL 14 MG TRANSDERM (08:18)
[2025-05-16] MEDS: LASIX 40 MG IV (08:20)
[2025-05-16] MEDS: COZAAR PO (08:26)
[2025-05-16] MEDS: FARXIGA PO ×2 (08:26→09:37)
[2025-05-16] MEDS: LOW STRENGTH ASPIRIN PO (08:26)
[2025-05-16] MEDS: COREG PO ×3 (08:26→21:16)
--- NOTE | 2025-05-16 08:31 | PTCARENOTE ---
Patient refusing scheduled morning pills but agreeable to take Lasix. Attempted to educate on heart failure but patient has no interest and lacks insight.
[2025-05-16 08:38] LABS: Blood Urea Nitrogen 21 mg/dl (9-20); Calcium 9.1 mg/dl (8.4-10.2); Carbon Dioxide 32 mmol/L (22-30); Chloride 102 mmol/L (98-107); Estimated Creatinine Clearance 80 ml/min; Glucose 110 mg/dl (70-99); Potassium 4.5 mmol/L (3.5-5.1); Sodium 139 mmol/L (135-145); eGFR > 60.00
--- NOTE | 2025-05-16 09:04 | W.PN.HOSP.TC ---
Today's Communication/Plan
-
Switch to Lasix p.o. tomorrow
Continue with his current medication. Case management to look into disposition. DC in a.m. if stable.
Assessment / Plan
Assessment / Plan
IMPRESSION:
Is a 75-year-old who was recently diagnosed with CHF with preserved EF and started on diuretics and GDMT however patient has not been taking his medications. He comes in with shortness of breath and found to have increased lower extremity edema and
some crackles on exam and mild hypoxia. Chest x-ray shows some increased interstitial markings consistent with mild pulmonary edema. Patient is also homeless and reports that cold weather this made his shortness of breath worse. He has no
coughing wheezes and no symptoms of acute infection. He does not appear to be in COPD exacerbation.
Plan
Shortness of breath�secondary to acute CHF exacerbation with preserved EF
- Resolved shortness of breath. Not hypoxic. Weight back to his baseline.
- Switch to oral Lasix starting tomorrow
- Daily weights and ins and outs
- Continue losartan 50 mg and carvedilol 12.5 mg twice daily
- Continue Farxiga
Essential hypertension-advised patient to take his blood pressure medicines to avoid recurrent CHF.
Noncompliant-patient is noncompliant with the medication in the past and as well as here now. He has refused few medications and taking only few. His rationale is that he does not need all of them!
Elevated troponin -s similar elevation as prior in the setting of is mild CHF exacerbation. No chest pain. No ischemia on EKG. Suspect elevation secondary to nonischemic myocardial injury
- Continue aspirin 81 mg daily
Tobacco dependence/COPD -
- DuoNebs prn
Schizophrenia -no medication
- Monitor for now, as needed diazepam as needed for agitation
Homelessness
- Case management
DVT prophylaxis�Lovenox subcu
CODE STATUS�full code
DC in a.m. if stable
Anticipated Discharge: Within 24 hours
Subjective/Interval History
-
Date of Service: May 16, 2025
Patient's breathing is improved. No chest pain.
No dizziness.
Looking at his medication administration record he is only taking Lasix but he has refused other medication. When questioned he says he does not think he needs them. Told him his blood pressure was 160 and not healthy for the heart and advised him
to take his losartan which he said he will take only if he is not discharged today!
No nausea vomiting.
Objective Data
-
Labs:
Laboratory Results
05/16/25
07:12
Sodium 139
Potassium 4.5
Chloride 102
Carbon Dioxide 32 H
BUN 21 H
Creatinine 0.9
Glucose 110 H
Calcium 9.1
Vital Signs:
Vital Signs
Temp Pulse Resp BP Pulse Ox
97.8 F 63 24 160/84 92
05/16/25 08:16 05/16/25 08:16 05/16/25 08:16 05/16/25 08:16 05/16/25 08:16
I&O
05/15/25 05/16/25 05/17/25
06:59 06:59 06:59
Intake Total 480 / 480 1740 / 1740
Output Total 800 / 800 2500 / 2500 100 / 100
Balance -320 / -320 -760 / -760 -100 / -100
Physical Exam
-
General: No Apparent Distress
HEENT: Moist Mucous Membranes
Respiratory: Clear to Auscultation and Non Labored Respirations; Negative Wheezes, Crackles or Accessory Resp Muscle Use
Cardiac: Regular Rhythm and S1/S2; Negative Tachycardic
GI: Soft
Neuro: AO x 3
Psych: Calm
Data Reviewed
-
Labs: Labs Reviewed by me
[2025-05-16] MEDS: COZAAR 50 MG PO (09:31)
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
[2025-05-16 16:20] VITALS: BP 159/99
[2025-05-16 20:10] VITALS: BP 143/82
[2025-05-16 22:23] VITALS: BP 155/94
[2025-05-17 03:25] VITALS: BP 145/84
[2025-05-17 06:00] VITALS: BMI 26.6
[2025-05-17 07:00] VITALS: BP 166/87
[2025-05-17 07:08] LABS: Blood Urea Nitrogen 27 mg/dl (9-20); Calcium 8.9 mg/dl (8.4-10.2); Carbon Dioxide 30 mmol/L (22-30); Chloride 103 mmol/L (98-107); Estimated Creatinine Clearance 80 ml/min; Glucose 102 mg/dl (70-99); Potassium 4.7 mmol/L (3.5-5.1); Sodium 137 mmol/L (135-145); eGFR > 60.00
[2025-05-17] MEDS: NICODERM TRANSDERMAL 14 MG TRANSDERM (09:40)
[2025-05-17] MEDS: COREG PO (09:45)
[2025-05-17] MEDS: LOW STRENGTH ASPIRIN PO (09:46)
[2025-05-17] MEDS: COZAAR PO (09:46)
[2025-05-17] MEDS: FARXIGA PO (09:46)
--- NOTE | 2025-05-17 10:09 | W.PN.HOSP.TC ---
Today's Communication/Plan
-
DC
Assessment / Plan
Assessment / Plan
IMPRESSION:
Is a 75-year-old who was recently diagnosed with CHF with preserved EF and started on diuretics and GDMT however patient has not been taking his medications. He comes in with shortness of breath and found to have increased lower extremity edema and
some crackles on exam and mild hypoxia. Chest x-ray shows some increased interstitial markings consistent with mild pulmonary edema. Patient is also homeless and reports that cold weather this made his shortness of breath worse. He has no
coughing wheezes and no symptoms of acute infection. He does not appear to be in COPD exacerbation.
Plan
Shortness of breath�secondary to acute CHF exacerbation with preserved EF
- Resolved shortness of breath. Not hypoxic. Weight back to his baseline.
- Switched to oral Lasix
- Continue losartan 50 mg and carvedilol 12.5 mg twice daily
- Continue Farxiga
Significant factor for recurrent CHF exacerbations is secondary to noncompliance of medications. Again patient was told today about the importance of being compliant with the medication and follow-up with the doctors to prevent recurrent
exacerbation, significant cardiac events including .
Essential hypertension-advised patient to take his blood pressure medicines to avoid recurrent CHF.
Noncompliant-patient is noncompliant with the medication in the past and as well as here now. He has refused few medications and taking only few. His rationale is that he does not need all of them!
Elevated troponin -s similar elevation as prior in the setting of is mild CHF exacerbation. No chest pain. No ischemia on EKG. Suspect elevation secondary to nonischemic myocardial injury
- Continue aspirin 81 mg daily
Tobacco dependence/COPD -
- DuoNebs prn
Schizophrenia -no medication
- Monitor for now, as needed diazepam as needed for agitation
Homelessness
- Case management
DVT prophylaxis�Lovenox subcu
CODE STATUS�full code
Medically stable for DC
Case management efforts in finding him a place to stay noted. Advised patient to go to [facility].
Anticipated Discharge: Today
Subjective/Interval History
-
Date of Service: May 17, 2025
Resolved shortness of breath. Again patient has refused this medication this morning.
Denies chest pain.
Denies nausea vomiting. Tolerating diet.
Objective Data
-
Labs:
Laboratory Results
05/17/25
05:34
Sodium 137
Potassium 4.7
Chloride 103
Carbon Dioxide 30
BUN 27 H
Creatinine 0.9
Glucose 102 H
Calcium 8.9
Vital Signs:
Vital Signs
Temp Pulse Resp BP Pulse Ox
97.6 F 57 20 166/87 92
05/17/25 07:00 05/17/25 07:00 05/17/25 07:00 05/17/25 07:00 05/17/25 07:00
I&O
05/16/25 05/17/25 05/18/25
06:59 06:59 06:59
Intake Total 1740 / 1740 1440 / 1440
Output Total 2500 / 2500 100 / 100
Balance -760 / -760 1340 / 1340
Physical Exam
-
General: No Apparent Distress
HEENT: Moist Mucous Membranes
Respiratory: Clear to Auscultation and Non Labored Respirations; Negative Wheezes, Crackles or Accessory Resp Muscle Use
Cardiac: Regular Rhythm and S1/S2; Negative Tachycardic
GI: Soft
Neuro: AO x 3
Psych: Calm
Data Reviewed
-
Labs: Labs Reviewed by me
--- NOTE | 2025-05-17 10:50 | CM ---
Addendum entered by Elizabeth Pang 05/17/25 11:51:
Patient's nurse given the [facility]ART schedule and $1.00 for fare. DART stops at the [facility] where he wants to go
Original Note:
Plan: Discharge today; requesting transport to [facility] in [place]
[2025-05-17 11:00] VITALS: BP 158/80
--- NOTE | 2025-05-17 13:22 | W.DCSUMMARY ---
Discharge Summary
Discharge Data
Date of Admission: 05/15/25
Date of Discharge: 05/17/25
-
Pending Results: No
Hospital Course
Primary diagnosis:
Acute on chronic heart failure with preserved EF
Noncompliance with the treatment
Secondary diagnosis:
Essential hypertension
Chronic paranoid schizophrenia
Homeless
Hospital course:
Patient is currently homeless and has a history of heart failure, COPD presented with shortness of breath. Patient on admission reported that he is not compliant with the medication. He started noticed increasing lower extremity swelling. He was
not been weighing himself. Chest x-ray suggested mildly decreased lung volumes with likely mild interstitial edema.
His weight was up by 9 pounds within the last 10 days.
Clinical case of acute CHF decompensation due to noncompliance. With diuretics his weight went down from 205 lbsto 196 lbs which is his recent baseline. He had resolution of his symptoms.
He has demonstrated here again that he is not compliant with the medication. He was taking medication as he wished. He took diuretics but not antihypertensive sometimes take antihypertensive sometimes but not Farxiga and Coreg.
Counseled again about the importance of complex of the medication to prevent recurrent CHF decompensation and life-threatening cardiac events.
Case management approached him and gave him an options to stay out of the states but he had his own mind so he left the hospital did not take case management advice.
Discharge Plan
-
Patient Disposition: Other
Discharge Diagnosis/Procedures: Acute CHF exacerbation
Diet: 2 Gram Sodium and Restrict fluids to 64 oz
Activity: As tolerated
Driving Restrictions: As prior to admission
Specialty Instructions: Weigh Daily- Call MD for wt gain/loss 3 lbs overnight/5 lbs in 1 week
Instructions: *PCP/Other Wet End Tester Heart Failure Instructions
Referrals:
NONE,* [Family Provider, Internal Medicine] - in less than 1 week
Prescriptions:
Continued
carvedilol 12.5 mg Tablet
12.5 mg PO BID Qty: 60 0RF
losartan 50 mg Tablet
50 mg PO DAILY Qty: 30 0RF
dapagliflozin propanediol 10 mg Tablet
10 mg PO DAILY Qty: 30 0RF
furosemide 40 mg Tablet
40 mg PO DAILY Qty: 30 0RF
aspirin 81 mg Tablet,Chewable
81 mg PO DAILY Qty: 30 0RF
albuterol sulfate [Ventolin HFA] 90 mcg/actuation HFA aerosol inhaler
2 puff inhalation Q6H PRN (Reason: shortness of breath or wheezing) Qty: 6.7 0RF
Discontinued
prednisone 10 mg tablet
10 mg PO DIRECTED Qty: 6 0RF
Rx Instructions:
20mg daily for 2 days and then 10mg daily for 2 days and stop
nicotine 14 mg/24 hr Patch 24 Hour
14 mg transdermal DAILY Qty: 7 0RF
dextromethorphan-guaifenesin 10-100 mg/5 mL Syrup
5 ml PO Q4HPRN PRN (Reason: cough) Qty: 237 0RF
Discharge Orders:
Discharge Patient (As Directed); Ordered 05/17/25
Ordered By: Balbir Manuel
Discharge Date and Time
Discharge Date/Time: 05/17/25 11:49
Print Language: BELARUSIAN
--- NOTE | 2025-05-18 10:55 | W.HF.CON ---
Heart Failure
- LV Function
Left ventricular function study result: LV Ejection fraction >/= 50% (ECHO 04/30/25)
Ejection Fraction Percentage: 50-55
- ARNI
Patient already on ARNI: No
Heart Failure ARNI Not Indicated: LV Ejection Fraction >/= 40%
- ACEI/ARB
Patient already on ACEI/ARB: Yes
- Beta Anshul
Patient already on Evidence Based Beta Anshul: Yes
- Mineralocorticord Receptor Antagonist
Patient already on MRA: No
Heart Failure MRA Not Indicated: LV Ejection Fraction > 40%
- SGLT-2 Inhibitor
Patient already on SGLT-2 Inhibitor: Yes
- NYHA CHF Classification
NYHA CHF Classification Level: Class III - Symptoms w/ min exertion, interferes w/ nml daily activity
- ACC/AHA Stage
ACC/AHA Stage: Stage C: Symptomatic Heart Failure
== END 2025-05-17 11:49 | disposition home or self-care (01) ==
LOC: 2 NORTH 01:17
PROVIDERS: Emergency Medicine; ADMITTING PHYSICIAN Internal Medicine; ATTENDING PHYSICIAN Internal Medicine; EMERGENCY PHYSICIAN Student in an Organized Health Care Education/Training Program
DX: I11.0 Hypertensive heart disease with heart failure (principal); R06.02 Shortness of breath; I50.33 Acute on chronic diastolic (congestive) heart failure; F20.0 Paranoid schizophrenia; R09.89 Other specified symptoms and signs involving the circulatory and respiratory systems; J44.9 Chronic obstructive pulmonary disease, unspecified; I25.2 Old myocardial infarction; F32.A Depression, unspecified; F17.210 Nicotine dependence, cigarettes, uncomplicated; M79.89 Other specified soft tissue disorders; F17.200 Nicotine dependence, unspecified, uncomplicated; R26.9 Unspecified abnormalities of gait and mobility; M25.562 Pain in left knee; M25.561 Pain in right knee; F41.9 Anxiety disorder, unspecified; I49.1 Atrial premature depolarization; Z59.00 Homelessness unspecified; Z79.899 Other long term (current) drug therapy; Z91.148 Patient's other noncompliance with medication regimen for other reason
CPT/HCPCS: 71046; 80048; 80053; 83735; 83880; 84484; 85025; 93005; 94640; 99285; 99406; G0378

== ENCOUNTER 2025-05-22 01:04 | Emergency (ER) | payer MEDICARE, SELFPAY ==
[2025-05-22 01:06] VITALS: BP 141/78
[2025-05-22 01:15] VITALS: BMI 28.6
[2025-05-22 03:19] VITALS: BP 159/78
[2025-05-22 03:38] LABS: Blood Urea Nitrogen 19 mg/dl (9-20); Calcium 8.7 mg/dl (8.4-10.2); Carbon Dioxide 27 mmol/L (22-30); Chloride 107 mmol/L (98-107); Estimated Creatinine Clearance 103 ml/min; Glucose 112 mg/dl (70-99); Potassium 4.6 mmol/L (3.5-5.1); Sodium 137 mmol/L (135-145); eGFR > 60.00
[2025-05-22 03:42] LABS: Troponin I 0.028 ng/ml
[2025-05-22] MEDS: COZAAR 50 MG PO (04:29)
[2025-05-22] MEDS: COREG 12.5 MG PO (04:29)
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
== END 2025-05-22 05:13 | disposition home or self-care (01) ==
LOC: EMR 01:04
PROVIDERS: EMERGENCY PHYSICIAN Emergency Medicine
DX: I11.0 Hypertensive heart disease with heart failure (principal); I50.9 Heart failure, unspecified; Z91.148 Patient's other noncompliance with medication regimen for other reason; Z59.00 Homelessness unspecified; I08.0 Rheumatic disorders of both mitral and aortic valves; F20.0 Paranoid schizophrenia; J44.9 Chronic obstructive pulmonary disease, unspecified; F17.200 Nicotine dependence, unspecified, uncomplicated; Z91.199 Patient's noncompliance with other medical treatment and regimen due to unspecified reason; Z60.8 Other problems related to social environment
CPT/HCPCS: 99284; 71046; 80048; 83880; 84484; 93005

== ENCOUNTER 2025-06-17 21:26 | Emergency (ER) | payer MEDICARE, SELFPAY ==
[2025-06-17 21:29] VITALS: BP 92/47
[2025-06-17 22:43] VITALS: BMI 28.4
[2025-06-17 22:46] LABS: Hematocrit 38.7 % (39.0-52.0); Hemoglobin 13.0 g/dL (13.0-18.0); Mean Corp Hgb Conc. 33.6 g/dL (33.0-37.0); Mean Corpuscular Volume 97.2 fL (80.0-94.0); Nucleated Red Blood Cells % 0 % (-); Platelet Count 153 10^3/uL (130-400); Red Cell Dist. Width 13.4 % (11.5-14.5)
[2025-06-17 23:07] LABS: ALT (SGPT) 17 U/L (0-50); AST (SGOT) 24 U/L (17-59); Albumin 3.7 g/dl (3.5-5.0); Alkaline Phosphatase 49 U/L (38-126); Blood Urea Nitrogen 14 mg/dl (9-20); Calcium 8.4 mg/dl (8.4-10.2); Carbon Dioxide 23 mmol/L (22-30); Chloride 109 mmol/L (98-107); Estimated Creatinine Clearance 103 ml/min; Glucose 111 mg/dl (70-99); Potassium 3.6 mmol/L (3.5-5.1); Sodium 143 mmol/L (135-145); Total Protein 6.1 g/dl (6.3-8.2); eGFR > 60.00
[2025-06-17] MEDS: LASIX 40 MG PO (23:51)
[2025-06-17 23:57] VITALS: BP 117/55
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
--- NOTE | 2025-06-18 00:47 | EDRN ---
Pt ok for discharge but has nowhere to go, per ER charge nurse pt can continue to sleep in the room overnight and be seen by case technician in the AM. Pt has been resting with eyes closed, no s/s distress noted.
--- NOTE | 2025-06-18 04:02 | PTCARENOTE ---
Pt currently resting with eyes closed on stretcher, no s/s distress noted, respirations even and unlabored, has been able to make needs known throughout the shift.
--- NOTE | 2025-06-18 05:32 | EDRN ---
Pt walked out of room and requested food. Pt given boxed turkey sandwich meal.
--- NOTE | 2025-06-18 07:56 | EDRN ---
Pt caterina, IV removed by [facility] PCT, and pt insists on going to to await seeing talent development manager for snf.
--- NOTE | 2025-06-18 08:21 | EDRN ---
Pt awoke at 7:40, insisting on leaving. THis RN took pt paperwork and ED PCT was getting w/c to accomodate pt's demands as pt adamant of leaving the room. Pt requesting sales product manager to see him but not in yet and pt told as he wants usp. Pt would
not await w/c and walked out up to supercharger repair supervisor desk where he was placed in W/C and taken to WR. This RN just called Case Manage about getting pt usp. pt upsetting triage WR and electric milkers installer came down to ask about pt. This RN updated hair stylist and
advised talking to security if pt remains unruly while waiting to Alli case repairer that this RN called at this itme.
--- NOTE | 2025-06-18 08:30 | EDRN ---
Alli CM going to see pt in WR at this time.
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
== END 2025-06-18 07:55 | disposition home or self-care (01) ==
LOC: EMR 21:26
PROVIDERS: Nurse Practitioner; EMERGENCY PHYSICIAN Student in an Organized Health Care Education/Training Program
DX: R06.00 Dyspnea, unspecified (principal); F17.210 Nicotine dependence, cigarettes, uncomplicated; I11.0 Hypertensive heart disease with heart failure; I50.9 Heart failure, unspecified; J44.9 Chronic obstructive pulmonary disease, unspecified; Z59.00 Homelessness unspecified
CPT/HCPCS: 99284; 71046; 80053; 83880; 85025

== ENCOUNTER 2025-06-23 21:59 | Emergency (ER) | payer MEDICARE, SELFPAY ==
[2025-06-23 22:01] VITALS: BP 174/80
[2025-06-23 22:48] LABS: Hematocrit 40.2 % (39.0-52.0); Hemoglobin 13.9 g/dL (13.0-18.0); Mean Corp Hgb Conc. 34.6 g/dL (33.0-37.0); Mean Corpuscular Volume 95.7 fL (80.0-94.0); Nucleated Red Blood Cells % 0 % (-); Platelet Count 188 10^3/uL (130-400); Red Cell Dist. Width 13.6 % (11.5-14.5)
[2025-06-23 23:04] LABS: ALT (SGPT) 19 U/L (0-50); AST (SGOT) 22 U/L (17-59); Albumin 3.9 g/dl (3.5-5.0); Alkaline Phosphatase 50 U/L (38-126); Blood Urea Nitrogen 21 mg/dl (9-20); Calcium 8.6 mg/dl (8.4-10.2); Carbon Dioxide 27 mmol/L (22-30); Chloride 106 mmol/L (98-107); Glucose 118 mg/dl (70-99); Potassium 4.0 mmol/L (3.5-5.1); Sodium 138 mmol/L (135-145); Total Protein 6.6 g/dl (6.3-8.2); eGFR > 60.00
[2025-06-24 01:21] VITALS: BMI 28.7
[2025-06-24 01:25] VITALS: BP 154/91
[2025-06-24 02:00] VITALS: BP 140/83
[2025-06-24 03:00] VITALS: BP 154/78
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
[2025-06-24] MEDS: VENTOLIN NEBULES 2.5 MG INH (03:38)
[2025-06-24] MEDS: LASIX 40 MG PO (03:38)
[2025-06-24] MEDS: DELTASONE 40 MG PO (03:38)
--- NOTE | 2025-06-24 03:43 | EDRN ---
Pt sitting on side of stretcher holding face mask that he puts to his face to take one breath then pulls it away. Pt will not keep mask on for tx.
[2025-06-24 04:03] VITALS: BP 163/88
--- NOTE | 2025-06-24 04:07 | EDRN ---
Pt requesting food as he was rolled down the hallway to his room - informed there is a boxed sandwich at bedside waiting for him. Pt demanding, instructing staff to put his rail down, move his urinal, move his cane, place things in room, take off
monitor. This RN reminded pt he is in the ED for trouble breathing and asked that he let staff take care of him and assured him he will be set up as he needs to eat and drink. Pt apologetic. VSS repeated. Pt then requested pulse ox and bp cuff
be removed which was done. Prior to going for cxr, pt had removed mask from neb tx and was taking occasional inhalation of tx like a vape. Little medicine left which pt did not want to finish.
[2025-06-24 04:22] LABS: Troponin I 0.033 ng/ml
--- NOTE | 2025-06-24 05:46 | EDRN ---
Dr Pandey informed pt he is being discharged. Pt informed he can get dressed. Pt got very agitated at this RN yelling 'You gave me a shit sandwich!' Explained to pt that was the last sandwich in this dept. Pt argumentative stating he usually gets
turkey 'You're supposed to provide meals to people!' Pt got up and ripped open the curtain while this RN in the room, yelling, and stomped back to [facility]. Pt informed he can get dressed and this RN will bring in discharge papers for him.
--- NOTE | 2025-06-24 05:55 | EDRN ---
Pt signed for discharge instructions but would not take the papers 'I don't want no papers.'
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
--- NOTE | 2025-06-24 06:18 | EDRN ---
Few minutes ago pt came out of the room, cane in his hand not being used, and said commanded 'Let's go!' This RN assisted pt with getting into wheelchair. Pt did not follow instruction, did it his way. As pt being wheeled to waiting room, pt made
inappropriate comments 'Listen you, don't give me any of your shit!' Unknown what pt was talking about. 'I wish I had a beast like you with me to help me get things done.' Pt wheeled to waiting room and taken to area he requested. Pt got up from
wheelchair unassisted and sat in chair. Security informed of pt in waiting room.
== END 2025-06-24 06:15 | disposition home or self-care (01) ==
LOC: EMR 21:59
PROVIDERS: Emergency Medicine; EMERGENCY PHYSICIAN Emergency Medicine
DX: R06.00 Dyspnea, unspecified (principal); Z59.02 Unsheltered homelessness; I49.1 Atrial premature depolarization; I11.0 Hypertensive heart disease with heart failure; I50.9 Heart failure, unspecified; J44.9 Chronic obstructive pulmonary disease, unspecified; F20.9 Schizophrenia, unspecified; F32.A Depression, unspecified; F17.200 Nicotine dependence, unspecified, uncomplicated; Z91.148 Patient's other noncompliance with medication regimen for other reason; Z91.199 Patient's noncompliance with other medical treatment and regimen due to unspecified reason
CPT/HCPCS: 99284; 94640; 71046; 80053; 83880; 84484; 85025; 93005

== ENCOUNTER 2025-06-24 22:23 | Emergency (ER) | payer MEDICARE, SELFPAY ==
[2025-06-24 22:24] VITALS: BP 184/103
[2025-06-24 22:41] LABS: Hematocrit 40.8 % (39.0-52.0); Hemoglobin 13.9 g/dL (13.0-18.0); Mean Corp Hgb Conc. 34.1 g/dL (33.0-37.0); Mean Corpuscular Volume 95.8 fL (80.0-94.0); Nucleated Red Blood Cells % 0 % (-); Platelet Count 175 10^3/uL (130-400); Red Cell Dist. Width 13.5 % (11.5-14.5)
[2025-06-24 22:51] LABS: ALT (SGPT) 20 U/L (0-50); AST (SGOT) 24 U/L (17-59); Albumin 4.1 g/dl (3.5-5.0); Alkaline Phosphatase 47 U/L (38-126); Blood Urea Nitrogen 21 mg/dl (9-20); Calcium 8.8 mg/dl (8.4-10.2); Carbon Dioxide 24 mmol/L (22-30); Chloride 106 mmol/L (98-107); Glucose 147 mg/dl (70-99); Potassium 3.8 mmol/L (3.5-5.1); Sodium 138 mmol/L (135-145); Total Protein 6.8 g/dl (6.3-8.2); eGFR > 60.00
[2025-06-24 23:03] LABS: Troponin I 0.026 ng/ml
[2025-06-25 01:11] VITALS: BP 180/89
[2025-06-25 02:00] VITALS: BP 128/70
[2025-06-25 03:00] VITALS: BP 149/90
== END 2025-06-25 06:57 | disposition left against medical advice (07) ==
LOC: EMR 22:23
PROVIDERS: Emergency Medicine; EMERGENCY PHYSICIAN Emergency Medicine
DX: Z53.21 Procedure and treatment not carried out due to patient leaving prior to being seen by health care provider (principal)
CPT/HCPCS: 80053; 84484; 85025; 93005

== ENCOUNTER 2025-07-01 20:34 | Emergency (ER) | payer MEDICARE, SELFPAY ==
[2025-07-01 20:35] VITALS: BP 182/89
[2025-07-02 02:35] LABS: Hematocrit 41.2 % (39.0-52.0); Hemoglobin 14.3 g/dL (13.0-18.0); Mean Corp Hgb Conc. 34.7 g/dL (33.0-37.0); Mean Corpuscular Volume 97.2 fL (80.0-94.0); Nucleated Red Blood Cells % 0 % (-); Platelet Count 168 10^3/uL (130-400); Red Cell Dist. Width 13.4 % (11.5-14.5)
[2025-07-02 03:02] LABS: Blood Urea Nitrogen 13 mg/dl (9-20); Calcium 8.7 mg/dl (8.4-10.2); Carbon Dioxide 25 mmol/L (22-30); Chloride 106 mmol/L (98-107); Glucose 98 mg/dl (70-99); Potassium 4.4 mmol/L (3.5-5.1); Sodium 135 mmol/L (135-145); eGFR > 60.00
[2025-07-02] MEDS: DECADRON 10 MG PO (03:20)
[2025-07-02] MEDS: DUONEB 3 ML INH (03:20)
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
== END 2025-07-02 06:48 | disposition home or self-care (01) ==
LOC: EMR 20:34
PROVIDERS: Physician Assistant; EMERGENCY PHYSICIAN Emergency Medicine
DX: R06.2 Wheezing (principal); I11.0 Hypertensive heart disease with heart failure; I50.9 Heart failure, unspecified; J44.9 Chronic obstructive pulmonary disease, unspecified; F20.9 Schizophrenia, unspecified; F32.A Depression, unspecified; F17.200 Nicotine dependence, unspecified, uncomplicated; Z59.00 Homelessness unspecified
CPT/HCPCS: 99284; 94640; 71046; 80048; 83880; 85025; 93005